=== PATIENT | female | born 1990 | race Caucasian/White ===

== ENCOUNTER 2017-03-06 23:08 | Inpatient (IN) | payer MEDICAID, OTHER ==
[~2017-03-06] VITALS: Ht 162.6 cm; Wt 116.9 kg
[~2017-03-06 23:08] MED LIST: DIFL150T PO; MACR100C PO; TIZA4 PO
[2017-03-06 23:09] VITALS: BP 181/86; PULSE 96; RESP 20; TEMP 98; O2SAT 100
[2017-03-07] VITALS (10 sets, daily range): BP systolic 108–152; BP diastolic 53–86; PULSE 16–93; RESP 16–18; TEMP 97.8–98.9; O2SAT 98–100
[2017-03-07 01:59] LABS: MEAN CORPUSCULAR HGB CONC 29.4 % (32.0-36.0)
[2017-03-07] MEDS ORDERED: ONDANSETRON HCL 4 MG/2 ML VIAL IV ONE (02:30)
[2017-03-07] MEDS ORDERED: MORPHINE SULFATE 4 MG/ML INJ IV PUSH ONE ×2 (02:30→04:45)
[2017-03-07] MEDS ORDERED: SODIUM CHLOR 0.9% 1000 ML INJ 1,000 ML IV ONE (02:30)
[2017-03-07 02:31] LABS: BASOPHIL % 0.5 % (0.0-2.0); EOSINOPHIL # 0.1 TH/MM3 (0-0.4); EOSINOPHIL % 1.4 % (0.0-4.0); LYMPH % 13.1 % (9.0-44.0); LYMPHOCYTE # 1.2 TH/MM3 (1.0-4.8); MEAN CELL VOLUME 56.8 FL (80.0-100.0); MEAN CORPUSCULAR HEMOGLOBIN 16.7 PG (27.0-34.0); MONO % 8.6 % (0.0-8.0); NEUT % 76.4 % (16.0-70.0); PLATELET COUNT 359 TH/MM3 (150-450); RED BLOOD COUNT 3.59 MIL/MM3 (4.00-5.30); RED CELL DISTRIBUTION WIDTH 20.9 % (11.6-17.2); WHITE BLOOD COUNT 9.2 TH/MM3 (4.0-11.0)
--- NOTE | 2017-03-07 02:45 | PD ---
HPI Chief Complaint: Abdominal Pain Time Seen by Provider: 01:29 Travel History International Travel<30 days: No Contact w/Intl Traveler<30days: No Traveled to known affect area: No History of Present Illness HPI The patient is 26 year old female who presents to the [facility] emergency department with a history of right lower quadrant pain that began at approximately 6 PM while she was working. She reports that last night she did start her menstrual cycle and initially thought it was related to this that she does have a history of dysmenorrhea, however the pain felt different. She reports that the pain is severe. She reports that it is constant although it waxes and wanes in its severity. She reports having nausea but no vomiting. She denies having any diarrhea. Her last bowel movement was earlier today. She denies having any blood in her stool or black or tarry stools. She reports that she does have a history of anemia related to her heavy menstrual cycles. The patient denies any recent fevers, cough, congestion, neck pain, chest pain, shortness of breath, urinary symptoms, vaginal discharge, or neurologic symptoms. [facility] Past Medical History Narrative Medical The patient's past medical history is significant for anemia related to her menstrual cycles, history of mild asthma. Hx Anticoagulant Therapy: No Anemia: Yes Asthma: Yes Cancer: No Cardiovascular Problems: No Chemotherapy: No Cerebrovascular Accident: No Diabetes: No Diminished Hearing: No GERD: Yes Psychiatric: No Respiratory: No Immunizations Current: Yes Seizures: No Thyroid Disease: No Ulcer: Yes (PEPTIC) Influenza Vaccination: Yes ?: Not : 4 Para: 3 : 1 Tubal Ligation: Yes Past Surgical History Narrative Surgical The patient's past surgical history is significant for 3 prior C-sections, bilateral tubal ligation. Section: Yes (3 C-SECTIONS 2007 AND 2011) Hysterectomy: No (TUBAL 2012) Oral Surgery: Yes Other Surgery: No Social History Alcohol Use: Yes (occ) Tobacco Use: No Substance Use: No Allergies-Medications (Allergen,Severity, Reaction): Coded Allergies: Lomotil (Verified Allergy, Severe, HIVES, 03/07/17) Reported Meds & Prescriptions Reported Meds & Active Scripts Active No Active Prescriptions or Reported Medications Review of Systems Except as stated in HPI: all other systems reviewed are Neg General / Constitutional: No: Fever Eyes: No: Visual changes HENT: No: Headaches Cardiovascular: No: Chest Pain or Discomfort Respiratory: No: Shortness of Breath Gastrointestinal: Positive: Nausea, Abdominal Pain, No: Vomiting, Diarrhea, Hematemesis, Hematochezia, Constipation, Changes in Bowel Habits, Indigestion, Loss of Appetite Genitourinary: No: Dysuria Musculoskeletal: No: Pain Skin: No Rash Neurologic: No: Weakness Psychiatric: No: Depression Endocrine: No: Polydipsia Hematologic/Lymphatic: No: Easy Bruising Physical Exam Narrative General: The patient is a well-developed well-nourished female, uncomfortable appearing on examination holding her right lower quadrant of the abdomen. Head and Neck exam: Head is normocephalic atraumatic. Eyes: EOMI, pupils are equal round and reactive to light. Nose: Midline septum with pink mucous membranes Mouth: Dentition unremarkable. Moist mucus membranes. Posterior oropharynx is not erythematous. No tonsillar hypertrophy. Uvula midline. Airway patent. Neck: No palpable lymphadenopathy. No nuchal rigidity. No thyromegaly. Cardiovascular: Regular rate and rhythm without murmurs, gallops, or rubs. No pulse deficit to the extremities. Lungs: Clear to auscultation bilaterally. No wheezes, rhonchi, or rales. Abdomen: Soft, with tenderness on palpation of the right lower quadrant of the abdomen, no other tenderness on palpation of the other 3 quadrants of the abdomen. No guarding, rebound, or rigidity. Negative [place] sign. She does have tenderness on palpation over McBurney's point. Normal bowel sounds are audible. Extremities: No clubbing, cyanosis, or edema. 2+ pulses in all 4 extremities. No calf tenderness on palpation. Back: No costovertebral angle tenderness to palpation. Neurologic Exam: Grossly nonfocal. Skin Exam: No rash noted. Intact skin that is warm and dry. Data Data Last Documented VS Vital Signs Date Time Temp Pulse Resp B/P Pulse Ox O2 Delivery O2 Flow Rate FiO2 03/07/17 03:50 78 16 135/63 98 Room Air 03/06/17 23:09 98.0 Orders Complete Blood Count With Diff (03/07/17 01:56) Comprehensive Metabolic Panel (03/07/17 01:56) C-Reactive Protein (Crp) (03/07/17 01:56) Lipase (03/07/17 01:56) Urinalysis - C+S If Indicated (03/07/17 01:56) Ct Abd/Pel W Iv Contrast(Rout) (03/07/17 01:56) Iv Access Insert/Monitor (03/07/17 01:56) Ecg Monitoring (03/07/17 01:56) Oximetry (03/07/17 01:56) Ed Urine Pregnancytest Poc (03/07/17 01:56) Sodium Chlor 0.9% 1000 Ml Inj (Ns 1000 M (03/07/17 02:30) Ondansetron Inj (Zofran Inj) (03/07/17 02:30) Morphine Inj (Morphine Inj) (03/07/17 02:30) Type And Screen (03/07/17 02:57) Red Blood Cells (Rbc) (03/07/17 02:57) Iohexol 350 Inj (Omnipaque 350 Inj) (03/07/17 03:06) Ketorolac Inj (Toradol Inj) (03/07/17 03:45) Admit Order (Ed Use Only) (03/07/17 04:09) Labs Laboratory Tests Test 03/07/17 03/07/17 02:20 03:25 White Blood Count 9.2 TH/MM3 Red Blood Count 3.59 MIL/MM3 Hemoglobin 6.0 GM/DL Hematocrit 20.4 % Mean Corpuscular Volume 56.8 FL Mean Corpuscular Hemoglobin 16.7 PG Mean Corpuscular Hemoglobin 29.4 % Concent Red Cell Distribution Width 20.9 % Platelet Count 359 TH/MM3 Mean Platelet Volume 8.8 FL Neutrophils (%) (Auto) 76.4 % Lymphocytes (%) (Auto) 13.1 % Monocytes (%) (Auto) 8.6 % Eosinophils (%) (Auto) 1.4 % Basophils (%) (Auto) 0.5 % Neutrophils # (Auto) 7.0 TH/MM3 Lymphocytes # (Auto) 1.2 TH/MM3 Monocytes # (Auto) 0.8 TH/MM3 Eosinophils # (Auto) 0.1 TH/MM3 Basophils # (Auto) 0.0 TH/MM3 CBC Comment AUTO DIFF Differential Comment AUTO DIFF CONFIRMED Ovalocytes 1+ Sodium Level 141 MEQ/L Potassium Level 3.4 MEQ/L Chloride Level 111 MEQ/L Carbon Dioxide Level 22.9 MEQ/L Anion Gap 7 MEQ/L Blood Urea Nitrogen 14 MG/DL Creatinine 0.79 MG/DL Estimat Glomerular Filtration 88 ML/MIN Rate Random Glucose 104 MG/DL Calcium Level 8.4 MG/DL Magnesium Level 2.3 MG/DL Iron Level 10 MCG/DL Total Iron Binding Capacity 487 MCG/DL Percent Iron Saturation 2.1 % Total Bilirubin 0.2 MG/DL Aspartate Amino Transf 16 U/L (AST/SGOT) Alanine Aminotransferase 19 U/L (ALT/SGPT) Alkaline Phosphatase 37 U/L C-Reactive Protein 0.77 MG/DL Total Protein 6.8 GM/DL Albumin 3.5 GM/DL Lipase 107 U/L Urine Color LIGHT-YELLOW Urine Turbidity CLEAR Urine pH 7.5 Urine Specific [place] 1.031 Urine Protein TRACE mg/dL Urine Glucose (UA) NEG mg/dL Urine Ketones NEG mg/dL Urine Occult Blood LARGE Urine Nitrite NEG Urine Bilirubin NEG Urine Urobilinogen LESS THAN 2.0 MG/DL Urine Leukocyte Esterase SMALL Urine RBC /hpf Urine WBC 5 /hpf Urine Squamous Epithelial 3 /hpf Cells Microscopic Urinalysis Comment CULT NOT INDICATED Blood Type A POSITIVE Antibody Screen NEGATIVE Crossmatch Leukocyte-Reduced Red Blood Cells Blood Bank Comment MDM Medical Decision Making Medical Screen Exam Complete: Yes Emergency Medical Condition: Yes Medical Record Reviewed: Yes Interpretation(s) Last Impressions Abdomen/Pelvis CT 03/07/17 0156 Signed Impressions: Service Date/Time: Tuesday, March 07, 2017 03:06 - CONCLUSION: 3 mm stone at the right UPJ causing hydronephrosis of the right kidney. Jim So MD Pelvis Ultrasound 03/07/17 0000 Signed Impressions: Service Date/Time: Tuesday, March 07, 2017 08:44 - CONCLUSION: 1. Isolated 1.7 x 1.5 x 2.2 cm small fibroid in the mid uterine body. Uterus is otherwise sonographically intact with a normal endometrial stripe. 2. Small, benign appearing 1 cm follicular type cysts in the left ovary. Ovaries are otherwise sonographically normal. 3. No free fluid. Patrick Stallworth MD Differential Diagnosis Ovarian cyst, versus appendicitis, versus dysmenorrhea, versus ectopic Narrative Course During the course of the patients emergency department visit, the patients history, examination, and differential diagnosis were reviewed with the patient. The patient had IV access obtained and blood work sent for analysis. The patient was placed on a cardiac care nurse with oximetry and blood pressure monitoring. The patient had a bedside test that was negative. The patient was initially provided normal saline 1 L IV fluid bolus, morphine 4 mg IV for pain, Zofran 4 mg IV for nausea. The patients laboratory studies were reviewed and remarkable for a white count of 9.2, hemoglobin 6, platelets 359 with 76.4 neutrophils, CMP is remarkable for a potassium at 3.4, chloride 111, GFR of 88, calcium 8.4, alkaline phosphatase 37, C-reactive protein 0.77, lipase 107, urinalysis shows innumerable rbc's otherwise unremarkable. I reviewed the patient's electronic medical record reveals that the patient has not been this anemic in the past. She denies any prior history of blood transfusion. She is agreeable with the plan to proceed with blood transfusion 2 units. Radiology studies were reviewed and remarkable for CT scan of the abdomen and pelvis that shows a 3 mm stone at the right UVJ causing hydronephrosis of the right kidney. The patients results were discussed with the patient, including the plan of care. I explained that further testing and/ or monitoring is indicated based on the patients history, examination, and/ or laboratory findings. Therefore, I recommended admission for additional evaluation. The patient expressed understanding and was agreeable with this plan. The patient was admitted to the hospital in stable condition and [facility] Physician Communication Physician Communication The patient's case was discussed with Dr. Shaikh who did agree to admit the patient for further evaluation and treatment at this time. Diagnosis Primary Impression: Menorrhagia Qualified Code: N92.0 - Menorrhagia with regular cycle Additional Impressions: Symptomatic anemia Ureteral calculi Admitting Information Admitting Physician Requests: Admit Scripts No Active Prescriptions or Reported Meds Azalia Gill MD Mar 07, 2017 02:45
[2017-03-07 02:47] LABS: ALT (GPT) 19 U/L (10-53); ANION GAP 7 MEQ/L (5-15); AST (GOT) 16 U/L (15-37); BICARBONATE 22.9 MEQ/L (21.0-32.0); BLOOD UREA NITROGEN 14 MG/DL (7-18); CHLORIDE 111 MEQ/L (98-107); GLOMERULAR FILTRATION RATE 88 ML/MIN (>89); POTASSIUM 3.4 MEQ/L (3.5-5.1); SODIUM (NA) 141 MEQ/L (136-145)
[2017-03-07 02:49] LABS: ALKALINE PHOSPHATASE 37 U/L (45-117); TOTAL BILIRUBIN ADULT 0.2 MG/DL (0.2-1.0)
[2017-03-07 02:52] LABS: HEMO FLAGS AUTO DIFF
[2017-03-07 02:53] LABS: HEMATOCRIT 20.4 % (35.0-46.0)
[2017-03-07] MEDS ORDERED: IOHEXOL 350 MG/ML 10 ML VIAL (for RAD DIAG) IV ONE (03:06)
[2017-03-07 03:17] LABS: OVALOCYTES 1+ (NORMAL); SCAN/DIFF AUTO DIFF CONFIRMED
--- NOTE | 2017-03-07 03:22 | RADRPT ---
EXAM DATE/TIME: 03/07/2017 03:06 [facility] COMPARISON: CT ABDOMEN & PELVIS W CONTRAST, September 05, 2008, 21:46. INDICATIONS : Right lower quadrant pain with nausea. IV CONTRAST: 97 cc Omnipaque 350 (iohexol) IV ORAL CONTRAST: No oral contrast ingested. RADIATION DOSE: 28.02 CTDIvol (mGy) MEDICAL HISTORY : Gastroesophageal reflux disease. Asthma. SURGICAL HISTORY : Tubal ligation. section. ENCOUNTER: Initial ACUITY: 1 day PAIN SCALE: 8/10 LOCATION: Right lower quadrant TECHNIQUE: Volumetric scanning of the abdomen and pelvis was performed. Using automated exposure control and ad justment of the mA and/or kV according to patient size, radiation dose was kept as low as reasonably achievable to obtain optimal diagnostic quality images. FINDINGS: LOWER LUNGS: The visualized lower lungs are clear. LIVER: Homogeneous density without lesion. There is no dilation of the biliary tree. No calcified gallston es. SPLEEN: Normal size without lesion. PANCREAS: Within normal limits. KIDNEYS: Normal in size and shape. There is hydronephrosis of the right collecting system. There is a 3 mm sto ne at the right UPJ causing obstruction. The left kidney is unremarkable. ADRENAL GLANDS: Within normal limits. VASCULAR: There is no aortic aneurysm. BOWEL/MESENTERY: The stomach, small bowel, and colon demonstrate no acute abnormality. There is no free intraperitone al air or fluid. The appendix is unremarkable. No inflammatory changes. ABDOMINAL WALL: Within normal limits. RETROPERITONEUM: There is no lymphadenopathy. BLADDER: No wall thickening or mass. No evidence of stones. REPRODUCTIVE: Within normal limits. INGUINAL: There is no lymphadenopathy or hernia. MUSCULOSKELETAL: Within normal limits for patient age. CONCLUSION: 3 mm stone at the right UPJ causing hydronephrosis of the right kidney. Jim So MD on March 07, 2017 at 3:18 Board Certified Radiologist. This report was verified electronically.
[2017-03-07] MEDS ORDERED: KETOROLAC TROMETHAMINE 30 MG/ML (IVP) VIAL IV PUSH ONE (03:45)
[2017-03-07 03:50] LABS: BLOOD, URINE LARGE (NEG); COMMENT (UR) CULT NOT INDICATED; CULTURE IF INDICATED CULT NOT INDICATED; GLUCOSE,URINE NEG (NEG); KETONE, URINE NEG (NEG); NITRITE,URINE NEG (NEG); PH, URINE 7.5 (5.0-8.5); SQUAMOUS EPITHELIAL CELL URINE 3 /hpf (0-5); URINE COLOR LIGHT-YELLOW (YELLW/STRAW)
[2017-03-07] MEDS ORDERED: MORPHINE SULFATE 4 MG/ML INJ IV PRN (04:15)
[2017-03-07] MEDS ORDERED: NALOXONE HCL 0.4 MG/ML AMP IV PRN (04:15)
[2017-03-07] MEDS ORDERED: SODIUM CHLORIDE 0.9% FLUSH 10 ML FLUSH IV FLUSH PRN (04:15)
[2017-03-07] MEDS ORDERED: RESP: ALBUTEROL 2.5 MG/IPRATROPIUM 0.5 MG NEB (PRN) NEB (04:15)
[2017-03-07] MEDS ORDERED: ACETAMINOPHEN 325 MG TAB PO PRN ×2 (04:15)
--- NOTE | 2017-03-07 04:19 | HHI.HP ---
[facility] Service [facility] Primary Care Physician No Primary Care Physician Admission Diagnosis symptomatic anemia, ureteral calculi Diagnoses: (1) Symptomatic anemia (2) DUB (dysfunctional uterine bleeding) (3) Kidney stone on right side (4) Hypokalemia Chief Complaint: Right lower quadrant pain Travel History International Travel<30 Days: No Contact w/Intl Traveler <30 Da: No Traveled to Known Affected Are: No History of Present Illness 26-year-old female with a history of DUB presented to the ED for evaluation of 1 day history of right lower quadrant pain, rated 8/10 in intensity localized without any radiation. Patient also reported beginning of her menses yesterday and states during the first 2 days of her periods she goes over 1 sanitary pad every 30 minutes and is currently experiencing significant weakness and lightheadedness .However she states the pain on her right lower quadrant is totally different than her usual pain associated with her menstrual cycle. CT abdomen/pelvics reveal treatment right UPJ stone. Abnormal lab include hemoglobin of 6.0 and potassium of 3.4. Patient denies any GI bleed has no respiratory complaints Review of Systems Other 12 systems reviewed and are negative except for the one mentioned in history of present illness Past Family Social History Past Medical History Anemia: Yes Asthma: Yes GERD: Yes Past Surgical History 3 C-SECTIONS 2007 AND 2011 TUBAL 2012 Reported Medications No Active Prescriptions or Reported Medications Allergies: Coded Allergies: Lomotil (Verified Allergy, Severe, HIVES, 03/07/17) Social History Alcohol Use: Yes (occ) Tobacco Use: No Substance Use: No Physical Exam Vital Signs Vital Signs Date Time Temp Pulse Resp B/P Pulse Ox O2 Delivery O2 Flow Rate FiO2 03/07/17 03:50 78 16 135/63 98 Room Air 03/06/17 23:09 98.0 96 20 181/86 100 Physical Exam GENERAL: This is a well-nourished, well-developed patient, in no apparent distress. SKIN: No rashes, ecchymoses or lesions. Cool and dry. HEAD: Atraumatic. Normocephalic. No temporal or scalp tenderness. EYES: Pupils equal round and reactive. Extraocular motions intact. No scleral icterus. No injection or drainage. ENT: Nose without bleeding, purulent drainage or septal hematoma. Throat without erythema, tonsillar hypertrophy or exudate. Uvula midline. Airway patent. NECK: Trachea midline. No JVD or lymphadenopathy. Supple, nontender, no meningeal signs. CARDIOVASCULAR: Regular rate and rhythm without murmurs, gallops, or rubs. RESPIRATORY: Clear to auscultation. Breath sounds equal bilaterally. No wheezes , rales, or rhonchi. GASTROINTESTINAL: Abdomen soft, non-tender, nondistended. No hepato-splenomegaly , or palpable masses. No guarding. MUSCULOSKELETAL: Extremities without clubbing, cyanosis, or edema. No joint tenderness, effusion, or edema noted. No calf tenderness. Negative Hom[place] sign bilaterally. NEUROLOGICAL: Awake and alert. Cranial nerves II through XII intact. Motor and sensory grossly within normal limits. Five out of 5 muscle strength in all muscle groups. Normal speech. Laboratory Laboratory Tests Test 03/07/17 03/07/17 02:20 03:25 White Blood Count 9.2 Red Blood Count 3.59 Hemoglobin 6.0 Hematocrit 20.4 Mean Corpuscular Volume 56.8 Mean Corpuscular Hemoglobin 16.7 Mean Corpuscular Hemoglobin 29.4 Concent Red Cell Distribution Width 20.9 Platelet Count 359 Mean Platelet Volume 8.8 Neutrophils (%) (Auto) 76.4 Lymphocytes (%) (Auto) 13.1 Monocytes (%) (Auto) 8.6 Eosinophils (%) (Auto) 1.4 Basophils (%) (Auto) 0.5 Neutrophils # (Auto) 7.0 Lymphocytes # (Auto) 1.2 Monocytes # (Auto) 0.8 Eosinophils # (Auto) 0.1 Basophils # (Auto) 0.0 CBC Comment AUTO DIFF Differential Comment AUTO DIFF CONFIRMED Ovalocytes 1+ Sodium Level 141 Potassium Level 3.4 Chloride Level 111 Carbon Dioxide Level 22.9 Anion Gap 7 Blood Urea Nitrogen 14 Creatinine 0.79 Estimat Glomerular Filtration 88 Rate Random Glucose 104 Calcium Level 8.4 Total Bilirubin 0.2 Aspartate Amino Transf 16 (AST/SGOT) Alanine Aminotransferase 19 (ALT/SGPT) Alkaline Phosphatase 37 C-Reactive Protein 0.77 Total Protein 6.8 Albumin 3.5 Lipase 107 Urine Color LIGHT-YELLOW Urine Turbidity CLEAR Urine pH 7.5 Urine Specific [place] 1.031 Urine Protein TRACE Urine Glucose (UA) NEG Urine Ketones NEG Urine Occult Blood LARGE Urine Nitrite NEG Urine Bilirubin NEG Urine Urobilinogen LESS THAN 2.0 Urine Leukocyte Esterase SMALL Urine RBC Urine WBC 5 Urine Squamous Epithelial 3 Cells Microscopic Urinalysis Comment CULT NOT INDICATED Blood Type A POSITIVE Result Diagram: 03/07/1721903/07/17219 Imaging Last Impressions Abdomen/Pelvis CT 03/07/17 0156 Signed Impressions: Service Date/Time: Tuesday, March 07, 2017 03:06 - CONCLUSION: 3 mm stone at the right UPJ causing hydronephrosis of the right kidney. Jim So MD Assessment and Plan Problem List: (1) Symptomatic anemia ICD Code: D64.9 Status: Acute (2) DUB (dysfunctional uterine bleeding) ICD Code: N93.8 Status: Acute (3) Hypokalemia ICD Code: E87.6 Status: Acute (4) Kidney stone on right side ICD Code: N20.0 Status: Acute (5) Obese ICD Code: E66.9 Status: Acute Assessment and Plan 26-year-old female with Symptomatic anemia Dysfunction uterine bleeding H&H of 6.0/20.4 -Transfuse 2 units of packed red blood cell and monitor H&H -Check iron profile -Check pelvic ultrasound to rule out fibroids -Outpatient follow-up with [facility] secondary to DUB for evaluation for possible D&C Hypokalemia -Replace Meredith to monitor Nephrolithiasis -CT abdomen noted and reviewed by me with finding of 3 mm stone at the right UPJ causing hydronephrosis of the right kidney -Gentle IV fluid hydration -Conservative treatment with Pain medication/analgesic accordingly, straining of urine -Flomax when necessary Obesity: Weight loss management advised DVT prophylaxis: Bilateral SCDs Code Status Full code Discussed Condition With Patient, ED physician Physician Certification 2 Midnight Certification Type: Admission for Inpatient Services Order for Inpatient Services The services are ordered in accordance with Medicare regulations or non- Medicare payer requirements, as applicable. In the case of services not specified as inpatient-only, they are appropriately provided as inpatient services in accordance with the 2-midnight benchmark. Estimated LOS (days): 2 days is the estimated time the patient will need to remain in the hospital, assuming treatment plan goals are met and no additional complications. Post-Hospital Plan: Not yet determined Chalo Shaikh MD Mar 07, 2017 04:19
[2017-03-07] MEDS ORDERED: POTASSIUM CHLORIDE 20 MEQ CONTROLLED RELEASE TAB PO ONE (04:30)
[2017-03-07 04:42] LABS: TRANSFERRIN IRON PROFILE 348 MG/DL (200-360)
--- NOTE | 2017-03-07 08:00 | HHI.PR ---
Subjective Remarks f/u anemia, R LQ pain pain is still there, worsening, comes and goes, 8-10, sharp with nausea, no vomiting, no fever. Also feels weak and with BYRD and would like to avoid transfusion Objective Vitals Vital Signs Date Time Temp Pulse Resp B/P Pulse Ox O2 Delivery O2 Flow Rate FiO2 03/07/17 05:00 16 03/07/17 03:50 78 16 135/63 98 Room Air 03/06/17 23:09 98.0 96 20 181/86 100 I/O 03/06/17 03/06/17 03/06/17 03/07/17 03/07/17 03/07/17 07:00 15:00 23:00 07:00 15:00 23:00 Intake Total 120 ml Balance 120 ml Intake Oral 120 ml # Voids 2 # Bowel Movements 0 Result Diagram: 03/07/1721903/07/17219 Objective Remarks Not in distress, well-nourished, looks stated age PERRL, pink conjunctiva without injection, anicteric Nose without bleeding, airway patent, oropharynx clear Supple neck, no masses or thyromegaly, trachea midline Normal rate and regular rhythm, soft 1/6 murmur Clear to auscultation and symmetric bilaterally, normal respiratory effort. Normal bowel sounds, soft, mild tenderness in the right lower quadrant, no CVA tenderness, nondistended, no guarding. Extremities without clubbing, cyanosis, or edema. No rash of generalized distribution. Skin is warm and dry. AAO x3, no cranial nerve deficits, moves all 4 extremities, no focal neurologic deficits Normal mood, appropriate affect A/P Problem List: (1) Symptomatic anemia ICD Code: D64.9 Status: Acute (2) DUB (dysfunctional uterine bleeding) ICD Code: N93.8 Status: Acute (3) Hypokalemia ICD Code: E87.6 Status: Acute (4) Kidney stone on right side ICD Code: N20.0 Status: Acute (5) Obese ICD Code: E66.9 Status: Acute Assessment and Plan This is a 26-year-old female with history of dysfunctional uterine bleeding presenting with anemia and right lower quadrant pain Symptomatic iron deficiency anemia secondary to Dysfunction uterine bleeding -H&H of 6.0/20.4, patient would like to be conservative with transfusion. Recheck hemoglobin, if still low, transfuse 2 units of packed red blood cells, iron profile also shows iron deficiency anemia. Start iron dextran. Follow-up ultrasound of the pelvis to rule out fibroids, outpatient follow-up with gynecology. Ureterolithiasis - abdominal CT scan showed right UPJ stone, 3 mm with hydronephrosis, kidney function is normal, will likely spontaneously pass out. Start Flomax, normal saline at 125 cc per hour, consult urology. Continue pain control, will strain urine. Hypokalemia- replace, check magnesium. Obesity: Weight loss management advised DVT prophylaxis: Bilateral SCDs, pharmacological prophylaxis contraindicated because of the knee. Noe Lopez MD Mar 07, 2017 08:00 Code Status Full code Neo Lopez MD Mar 07, 2017 08:00
[2017-03-07] MEDS: KETOROLAC TROMETHAMINE 10 MG TAB PO PRN ×2 (08:15→17:41)
[2017-03-07] MEDS: ONDANSETRON HCL 4 MG/2 ML VIAL IVP PRN ×2 (08:21→22:28)
[2017-03-07] MEDS: SODIUM CHLORIDE 0.9% FLUSH 10 ML FLUSH IV FLUSH SCH ×2 (09:00→20:00)
[2017-03-07 09:02] LABS: REVIEW FLAG FINAL
[2017-03-07 09:05] LABS: HEMATOCRIT 20.2 % (35.0-46.0)
--- NOTE | 2017-03-07 09:51 | RADRPT ---
EXAM DATE/TIME: 03/07/2017 08:44 [facility] COMPARISON: No previous studies available for comparison. INDICATIONS : Heavy menstrual cycle. MEDICAL HISTORY : Syncope. Migranes. Dizziness. Numbness. Heart murmur. Asthma. Dyspnea. Kidney stones. GOUT. Depressio n. Anemia. Hay fever. SURGICAL HISTORY : section. Tubal ligation. ENCOUNTER: Initial ACUITY: 1 day PAIN SCORE: 1/10 LOCATION: Bilateral pelvis MEASUREMENTS: UTERUS: 14.3 x 4.6 x 6.4 cm ENDOMETRIAL STRIPE: 3 mm RIGHT OVARY: 2.8 x 1.6 x 1.5 cm LEFT OVARY: 3.1 x 2.0 x 2.8 cm FINDINGS: UTERUS: Focal, 1.7 x 1.5 x 2.2 cm hypoechoic area in the mid uterus is characteristic of a small, isolated fi broid. Otherwise, homogeneous echotexture. RIGHT OVARY: Ovary contains no mass or significant cystic lesion. LEFT OVARY: Small, 1 cm follicular type cyst. Otherwise negative. MISCELLANEOUS: No free fluid. CONCLUSION: 1. Isolated 1.7 x 1.5 x 2.2 cm small fibroid in the mid uterine body. Uterus is otherwise sonographic ally intact with a normal endometrial stripe. 2. Small, benign appearing 1 cm follicular type cysts in the left ovary. Ovaries are otherwise sonogr aphically normal. 3. No free fluid. Patrick Stallworth MD on March 07, 2017 at 9:47 Board Certified Radiologist. This report was verified electronically.
[2017-03-07] MEDS: TAMSULOSIN HCL 0.4 MG CAP PO SCH (10:14)
[2017-03-07] MEDS: SODIUM CHLOR 0.9% 1000 ML INJ 1,000 ML IV SCH ×3 (10:15→22:28)
[2017-03-07] MEDS: MORPHINE SULFATE 4 MG/ML INJ IV PRN ×2 (13:22→22:28)
--- NOTE | 2017-03-07 18:41 | PD.CONS ---
HPI Service Urology Consult Requested By Reason for Consult Nephrolithiasis Primary Care Physician No Primary Care Physician Diagnosis: (1) Symptomatic anemia ICD Code: D64.9 (2) DUB (dysfunctional uterine bleeding) ICD Code: N93.8 (3) Hypokalemia ICD Code: E87.6 (4) Kidney stone on right side ICD Code: N20.0 (5) Obese ICD Code: E66.9 History of Present Illness 26yo female admitted for significant right flank pain as well as anemia seen in consultation for right nephrolithiasis. Patient reports she began to have pain yesterday while at work. Initially thought it due to her menstrual cycle, however the pain persisted and worsened. She describes the pain to be located in the right flank, radiating to the RUQ, that is sharp and severer, 10/10, intermittent in nature. She had nausea associated with the pain, no fevers. She has never had a stone episode before. She reported to the ED last night with CT scan identifying a right UPJ stone approx 3mm in size with mild hydronephrosis. Currently comfortable with pain medication. Review of Systems ROS Limitations: Clinical Condition Constitutional: DENIES: Fever Endocrine: COMPLAINS OF: Abnorml menstrual pattern Eyes: DENIES: Blurred vision Ears, nose, mouth, throat: DENIES: Hearing loss Respiratory: DENIES: Apneas, Cough Cardiovascular: DENIES: Chest pain Gastrointestinal: COMPLAINS OF: Abdominal pain Genitourinary: DENIES: Hematuria, Dysuria Musculoskeletal: DENIES: Joint pain Integumentary: DENIES: Rash Hematologic/lymphatic: DENIES: Bruising Immunologic/allergic: DENIES: Eczema Neurologic: DENIES: Abnormal gait, Headache Psychiatric: DENIES: Anxiety Except as stated in HPI: all other systems reviewed are Neg Past Family Social History Past Medical History Asthma GERD Past Surgical History 3 C-SECTIONS 2007 AND 2012 TUBAL 2013 Reported Medications Reported Meds & Active Scripts Active No Active Prescriptions or Reported Medications Allergies: Coded Allergies: Lomotil (Verified Allergy, Severe, HIVES, 03/07/17) Active Ordered Medications Current Medications Medications (Trade) Dose Ordered Sig/Moody Route Start Time Stop Time Status Last Admin (NS Flush) 2 ml UNSCH PRN IV FLUSH 03/07/17 04:15 (NS Flush) 2 ml BID IV FLUSH 03/07/17 09:00 (Tylenol) 650 mg Q4H PRN PO 03/07/17 04:15 (Zofran Inj) 4 mg Q6H PRN IVP 03/07/17 04:15 03/07/17 08:21 (Tylenol) 650 mg Q6H PRN PO 03/07/17 04:15 (Narcan Inj) 0.4 mg UNSCH PRN IV 03/07/17 04:15 Ketorolac Tromethamine 10 mg 10 mg Q6H PRN PO 03/07/17 04:45 03/12/17 04:44 03/07/17 17:41 (NS 1000 ml Inj) 1,000 ml @ 125 mls/hr Q8H IV 03/07/17 08:30 03/07/17 10:15 (Flomax) 0.4 mg DAILY PO 03/07/17 09:00 03/07/17 10:14 (Morphine Inj) 4 mg Q3H PRN IV 03/07/17 13:15 03/07/17 13:22 Family History Grandmother with "kidney problems" Social History ETOH No Tobacco Physical Exam Vital Signs Date Time Temp Pulse Resp B/P Pulse Ox O2 Delivery O2 Flow Rate FiO2 03/07/17 18:20 98.1 89 16 131/59 100 03/07/17 17:25 98.1 16 16 131/59 100 03/07/17 16:00 98.9 90 18 118/53 100 03/07/17 13:40 98.5 87 16 123/64 99 03/07/17 13:25 98.0 86 18 143/86 100 03/07/17 12:00 98.0 86 18 143/86 100 03/07/17 07:58 98.0 93 18 152/59 98 03/07/17 05:00 16 03/07/17 03:50 78 16 135/63 98 Room Air 03/06/17 23:09 98.0 96 20 181/86 100 Physical Exam GENERAL: This is a well-nourished, well-developed patient, in no apparent distress. SKIN: No rashes, ecchymoses or lesions. Cool and dry. HEAD: Atraumatic. Normocephalic. EYES: Extraocular motions intact. No scleral icterus. No injection or drainage. ENT: Nose without bleeding, purulent drainage. Airway patent. NECK: Trachea midline. No JVD or lymphadenopathy. CARDIOVASCULAR: Normal pulses, extremities well perfused RESPIRATORY: Nonlabored, equal chest rise GASTROINTESTINAL: Abdomen soft, non-tender, nondistended. GENITOURINARY: Mild right CVA tenderness MUSCULOSKELETAL: Extremities without clubbing, cyanosis, or edema. NEUROLOGICAL: Awake and alert. Motor and sensory grossly within normal limits. Normal speech. Lab results reviewed: Yes Laboratory Tests Test 03/07/17 03/07/17 03/07/17 03/07/17 02:20 03:25 04:21 08:41 White Blood Count 9.2 Red Blood Count 3.59 Hemoglobin 6.0 6.0 Hematocrit 20.4 20.2 Mean Corpuscular Volume 56.8 Mean Corpuscular Hemoglobin 16.7 Mean Corpuscular Hemoglobin 29.4 Concent Red Cell Distribution Width 20.9 Platelet Count 359 Mean Platelet Volume 8.8 Neutrophils (%) (Auto) 76.4 Lymphocytes (%) (Auto) 13.1 Monocytes (%) (Auto) 8.6 Eosinophils (%) (Auto) 1.4 Basophils (%) (Auto) 0.5 Neutrophils # (Auto) 7.0 Lymphocytes # (Auto) 1.2 Monocytes # (Auto) 0.8 Eosinophils # (Auto) 0.1 Basophils # (Auto) 0.0 CBC Comment AUTO DIFF Differential Comment AUTO DIFF CONFIRMED Ovalocytes 1+ Sodium Level 141 Potassium Level 3.4 Chloride Level 111 Carbon Dioxide Level 22.9 Anion Gap 7 Blood Urea Nitrogen 14 Creatinine 0.79 Estimat Glomerular Filtration 88 Rate Random Glucose 104 Calcium Level 8.4 Magnesium Level 2.3 Iron Level 10 Total Iron Binding Capacity 487 Percent Iron Saturation 2.1 Total Bilirubin 0.2 Aspartate Amino Transf 16 (AST/SGOT) Alanine Aminotransferase 19 (ALT/SGPT) Alkaline Phosphatase 37 C-Reactive Protein 0.77 Total Protein 6.8 Albumin 3.5 Lipase 107 Urine Color LIGHT-YELLOW Urine Turbidity CLEAR Urine pH 7.5 Urine Specific [place] 1.031 Urine Protein TRACE Urine Glucose (UA) NEG Urine Ketones NEG Urine Occult Blood LARGE Urine Nitrite NEG Urine Bilirubin NEG Urine Urobilinogen LESS THAN 2.0 Urine Leukocyte Esterase SMALL Urine RBC Urine WBC 5 Urine Squamous Epithelial 3 Cells Microscopic Urinalysis Comment CULT NOT INDICATED Blood Type A POSITIVE A POSITIVE Antibody Screen NEGATIVE Crossmatch Leukocyte-Reduced Red Blood Cells Blood Bank Comment Result Diagram: 03/07/17 0841 03/07/17 0220 Personally reviewed images: Yes Imaging Last Impressions Abdomen/Pelvis CT 03/07/17 0156 Signed Impressions: Service Date/Time: Tuesday, March 07, 2017 03:06 - CONCLUSION: 3 mm stone at the right UPJ causing hydronephrosis of the right kidney. Jim So MD Pelvis Ultrasound 03/07/17 0000 Signed Impressions: Service Date/Time: Tuesday, March 07, 2017 08:44 - CONCLUSION: 1. Isolated 1.7 x 1.5 x 2.2 cm small fibroid in the mid uterine body. Uterus is otherwise sonographically intact with a normal endometrial stripe. 2. Small, benign appearing 1 cm follicular type cysts in the left ovary. Ovaries are otherwise sonographically normal. 3. No free fluid. Patrick Stallworth MD Assessment and Plan Problem List: (1) Kidney stone on right side ICD Code: N20.0 Status: Acute Assessment and Plan 26yo female with right nephrolithiasis -CT scan reviewed with mild right hydronephrosis and small proximal ureteral stone noted in the right UPJ, approx 3mm in size -Patient has a good chance to pass this stone without surgical intervention -Recommend continued medical expulsive therapy with flomax and pain control -Patient may follow-up with [facility] in 2 weeks for further management of her stone burden after discharge -If her pain acutely worsens or develops significant fevers, she may require a stent -Please call with questions Aakash Beaulieu MD Mar 07, 2017 18:41
[2017-03-08 00:40] VITALS: BP 108/58; PULSE 91; RESP 17; TEMP 98.6; O2SAT 94
[2017-03-08] MEDS: KETOROLAC TROMETHAMINE 10 MG TAB PO PRN ×3 (01:38→22:01)
[2017-03-08] MEDS: MORPHINE SULFATE 4 MG/ML INJ IV PRN ×4 (04:01→19:43)
[2017-03-08 04:15] VITALS: BP 106/49; PULSE 79; RESP 16; TEMP 97; O2SAT 96
[2017-03-08 07:01] LABS: BASOPHIL % 0.5 % (0.0-2.0); EOSINOPHIL # 0.2 TH/MM3 (0-0.4); EOSINOPHIL % 2.5 % (0.0-4.0); HEMATOCRIT 24.4 % (35.0-46.0); LYMPH % 24.6 % (9.0-44.0); LYMPHOCYTE # 2.3 TH/MM3 (1.0-4.8); MEAN CORPUSCULAR HEMOGLOBIN 18.6 PG (27.0-34.0); MONO % 9.8 % (0.0-8.0); NEUT % 62.6 % (16.0-70.0); PLATELET COUNT 302 TH/MM3 (150-450); RED BLOOD COUNT 3.94 MIL/MM3 (4.00-5.30); RED CELL DISTRIBUTION WIDTH 26.4 % (11.6-17.2); WHITE BLOOD COUNT 9.5 TH/MM3 (4.0-11.0)
[2017-03-08 07:07] LABS: HEMO FLAGS AUTO DIFF
[2017-03-08] MEDS: SODIUM CHLOR 0.9% 1000 ML INJ 1,000 ML IV SCH (07:37)
[2017-03-08] MEDS: SODIUM CHLORIDE 0.9% FLUSH 10 ML FLUSH IV FLUSH SCH ×2 (07:38→19:42)
[2017-03-08 07:43] LABS: ALKALINE PHOSPHATASE 35 U/L (45-117); ALT (GPT) 17 U/L (10-53); ANION GAP 6 MEQ/L (5-15); AST (GOT) 14 U/L (15-37); BICARBONATE 25.6 MEQ/L (21.0-32.0); BLOOD UREA NITROGEN 16 MG/DL (7-18); CHLORIDE 109 MEQ/L (98-107); GLOMERULAR FILTRATION RATE 95 ML/MIN (>89); POTASSIUM 3.8 MEQ/L (3.5-5.1); SODIUM (NA) 141 MEQ/L (136-145); TOTAL BILIRUBIN ADULT 0.5 MG/DL (0.2-1.0)
[2017-03-08 08:03] LABS: KERATOCYTES OCC (NORMAL); PLATELET ESTIMATE SMEAR NORMAL (NORMAL); PLATELET MORPHOLOGY NORMAL (NORMAL); SCAN/DIFF AUTO DIFF CONFIRMED
[2017-03-08 08:04] VITALS: BP 111/57; PULSE 72; RESP 16; TEMP 97.3; O2SAT 100
[2017-03-08] MEDS: TAMSULOSIN HCL 0.4 MG CAP PO SCH (08:30)
[2017-03-08] MEDS: ONDANSETRON HCL 4 MG/2 ML VIAL IVP PRN (08:31)
--- NOTE | 2017-03-08 09:51 | HHI.PR ---
Subjective Remarks still fees weak voiding spontaneously right low back pain- " travelling down" better Objective Vitals Vital Signs Date Time Temp Pulse Resp B/P Pulse Ox O2 Delivery O2 Flow Rate FiO2 03/08/17 08:04 97.3 72 16 111/57 100 03/08/17 04:15 97.0 79 16 106/49 96 03/08/17 00:40 98.6 91 17 108/58 94 03/07/17 21:58 98.3 82 18 108/69 100 03/07/17 18:35 97.8 89 16 120/62 100 03/07/17 18:20 98.1 89 16 131/59 100 03/07/17 17:25 98.1 16 16 131/59 100 03/07/17 16:00 98.9 90 18 118/53 100 03/07/17 13:40 98.5 87 16 123/64 99 03/07/17 13:25 98.0 86 18 143/86 100 03/07/17 12:00 98.0 86 18 143/86 100 I/O 03/07/17 03/07/17 03/07/17 03/08/17 03/08/17 03/08/17 07:00 15:00 23:00 07:00 15:00 23:00 Intake Total 120 ml 1200 ml 720 ml 240 ml Balance 120 ml 1200 ml 720 ml 240 ml Intake Oral 120 ml 1200 ml 720 ml 240 ml # Voids 2 3 2 2 # Bowel Movements 0 0 0 1 Result Diagram: 03/08/17 0600 03/08/17 0600 Imaging Last Impressions Abdomen/Pelvis CT 03/07/17 0156 Signed Impressions: Service Date/Time: Tuesday, March 07, 2017 03:06 - CONCLUSION: 3 mm stone at the right UPJ causing hydronephrosis of the right kidney. Jim So MD Pelvis Ultrasound 03/07/17 0000 Signed Impressions: Service Date/Time: Tuesday, March 07, 2017 08:44 - CONCLUSION: 1. Isolated 1.7 x 1.5 x 2.2 cm small fibroid in the mid uterine body. Uterus is otherwise sonographically intact with a normal endometrial stripe. 2. Small, benign appearing 1 cm follicular type cysts in the left ovary. Ovaries are otherwise sonographically normal. 3. No free fluid. Patrick Stallworth MD Objective Remarks awake and alert oriented c 3 anicteric lungs clear regular rhythm abdomen-soft good bowel sounds extremities no edema A/P Problem List: (1) Symptomatic anemia ICD Code: D64.9 Status: Acute (2) DUB (dysfunctional uterine bleeding) ICD Code: N93.8 Status: Acute (3) Hypokalemia ICD Code: E87.6 Status: Acute (4) Kidney stone on right side ICD Code: N20.0 Status: Acute (5) Obese ICD Code: E66.9 Status: Acute Assessment and Plan This is a 26-year-old female with history of dysfunctional uterine bleeding presenting with anemia Symptomatic iron deficiency anemia secondary to Dysfunction uterine bleeding =severe Iron deficiency anemia 6.0/20. s/p 2 units RBC- still weak from menorrhagia - give another 1 unit RBC give IV iron 200 mg IV x 1 start po Iron bid in am - gyne consult for evaluation- ? surgery Ureterolithiasis - abdominal CT scan showed right UPJ stone, 3 mm with hydronephrosis, kidney function is normal, will likely spontaneously pass out. on Flomax,- seen by Urology- OP ff up Hypokalemia- replace, check magnesium. Obesity: Weight loss management advised DVT prophylaxis: encourage increase ambulation CM- consult needs OP ff up set up- no insurance= patient assistance Jayshree Dumont MD Mar 08, 2017 09:51
[2017-03-08] MEDS ORDERED: IRON SUCROSE INJ 200 MG in SODIUM CHLORIDE 0.9% INJ 100 ML IV ONE (11:00)
[2017-03-08 12:15] VITALS: BP 152/74; PULSE 84; RESP 16; TEMP 95.8; O2SAT 99
[2017-03-08 14:10] VITALS: BP 138/70; PULSE 80; RESP 16; TEMP 96.9; O2SAT 98
--- NOTE | 2017-03-08 17:14 | PD.CONS ---
HPI Chief Complaint Heavy menstrual cycles with anemia Date Seen: Mar 08, 2017 Travel History International Travel<30 Days: No Contact w/Intl Traveler<30Days: No Known Affected Area: No History of Present Illness HPI This patient is 26-year-old white female A1 previous 3 who presents to the hospital with symptomatic anemia resulting from heavy periods, her periods last about a week or so for the first 2 days are extremely heavy with large clots she is using a tampon every 30 minutes, she states that she can 't live like that it disrupts her ability to function and work and just live she had her last several years ago and had a tubal ligation with that one Dr. Shepherd did that surgery and she has tried control pills which she could not tolerate for this bleeding problem she had 2 IUD is attempted one was a Mirena the other was a copper IUD both either fell out or didn't work caused her bleeding to be too heavy, and she is seen another CUSTODIAL OFFICER doctor in the community is recommended she have a surgical ablation of the endometrium and this was she wants to have at this stage Para: 3 : 4 Miscarriage: 1 History Past Medical History Narrative Medical Anemia secondary to uterine blood loss She is currently in the hospital also for renal stones seen on CT scan causing right-sided pain Obstetric History Obstetric History 3 C-sections 1 loss Past Surgical History Narrative Surgical 3 C-sections Social History Alcohol Use: Yes Tobacco Use: No Substance Abuse: No Allergies-Medications (Allergen,Severity, Reaction): Coded Allergies: Lomotil (Verified Allergy, Severe, HIVES, 03/07/17) Home Meds Discontinued Reported Medications Tizanidine 4 mg (Zanaflex 4 mg)4 Mg Tab1 Tab PO HS PRN (RESTLESSNESS) 06/17/15 Discontinued Scripts Nitrofurantoin Monohyd Macro (Macrobid)100 Mg [id number] Mg PO BID #10 CAP Prov:Masoud Mccord MD 06/17/15 Fluconazole 150 mg (Diflucan 150 mg)150 Mg [id number] Mg PO TODAY #1 TAB Prov:Masoud Mccord MD 06/17/15 Review of Systems General / Constitutional: No: Fever, Weight Gain, Chills, Other Eyes: No: Diploplia, Blurred Vision, Visual changes, Pain, Photophobia HENT: No: Headaches, Vertigo, Lightheadedness Cardiovascular: No: Irregular Rhythm, Chest Pain or Discomfort, Palpitations, Tachycardia, Syncope, Varicosities, Edema, Cyanosis Respiratory: No: Cough, Short of Breath, Other Gastrointestinal: No: Nausea, Vomiting, Diarrhea Genitourinary: Menorrhagia, No: Decreased Urinary Output, Oliguria Musculoskeletal: No: Limited ROM, Weakness, Cramping, Edema, Pain Skin: No Rash, No Itching, No Dryness, No Lumps, No Change in Pigmentation, No Change in Nails, No Alopecia, No Lesions Neurologic: No: Weakness, Dizziness, Syncope, Focal Abnormalities, Coordination Problem, Headache, Slurred Speech, Seizures Psychiatric: No: Depression, Suicidal Ideations, Homicidal Ideation Endocrine: No: Heat Intolerance, Cold Intolerance, Polydipsia, Polyuria, Other Physical Exam Vital Signs Date Time Temp Pulse Resp B/P Pulse Ox O2 Delivery O2 Flow Rate FiO2 03/08/17 14:10 96.9 80 16 138/70 98 03/08/17 12:15 95.8 84 16 152/74 99 03/08/17 08:04 97.3 72 16 111/57 100 03/08/17 04:15 97.0 79 16 106/49 96 03/08/17 00:40 98.6 91 17 108/58 94 03/07/17 21:58 98.3 82 18 108/69 100 03/07/17 18:35 97.8 89 16 120/62 100 03/07/17 18:20 98.1 89 16 131/59 100 03/07/17 17:25 98.1 16 16 131/59 100 Narrative GENERAL: Well-nourished, well-developed patient. SKIN: Warm and dry. HEAD: Normocephalic and atraumatic. EYES: No scleral icterus. No injection or drainage. ENT: No nasal drainage noted. Mucous membranes pink. Airway patent. NECK: Supple, trachea midline. No JVD. CARDIOVASCULAR: Regular rate and rhythm without murmurs, gallops, or rubs. RESPIRATORY: Breath sounds equal bilaterally. No accessory muscle use. BREASTS: Bilateral exam showed no masses , no retractions, no nipple discharge. ABDOMEN/GI: Abdomen soft obese, non-tender, bowel sounds present, no rebound, no guarding Cervix: [Closed appears normal-] there is very little blood in the vagina , no active bleeding Dilatation: [-0] EXTREMITIES: No cyanosis or edema. BACK: Nontender without obvious deformity. No CVA tenderness. NEUROLOGICAL: Awake and alert. Motor and sensory grossly within normal limits. Five out of 5 muscle strength in all muscle groups. Normal speech. Data Data Orders Physician Name Changes (03/08/17 ) Iron Sucrose Inj (Venofer Inj) (03/08/17 11:00) Consult Gynecology (03/08/17 ) Case Management Consult (03/08/17 ) Morphine Inj (Morphine Inj) (03/08/17 12:00) (Hub Use Only)Inp Phy Cons/Ref (03/08/17 ) Labs Laboratory Tests Test 03/08/17 06:00 White Blood Count 9.5 Red Blood Count 3.94 Hemoglobin 7.3 Hematocrit 24.4 Mean Corpuscular Volume 62.0 Mean Corpuscular Hemoglobin 18.6 Mean Corpuscular Hemoglobin 30.0 Concent Red Cell Distribution Width 26.4 Platelet Count 302 Mean Platelet Volume 8.9 Neutrophils (%) (Auto) 62.6 Lymphocytes (%) (Auto) 24.6 Monocytes (%) (Auto) 9.8 Eosinophils (%) (Auto) 2.5 Basophils (%) (Auto) 0.5 Neutrophils # (Auto) 6.0 Lymphocytes # (Auto) 2.3 Monocytes # (Auto) 0.9 Eosinophils # (Auto) 0.2 Basophils # (Auto) 0.0 CBC Comment AUTO DIFF Differential Comment AUTO DIFF CONFIRMED Platelet Estimate NORMAL Platelet Morphology Comment NORMAL Keratocytes OCC Sodium Level 141 Potassium Level 3.8 Chloride Level 109 Carbon Dioxide Level 25.6 Anion Gap 6 Blood Urea Nitrogen 16 Creatinine 0.74 Estimat Glomerular Filtration 95 Rate Random Glucose 82 Calcium Level 8.0 Total Bilirubin 0.5 Aspartate Amino Transf 14 (AST/SGOT) Alanine Aminotransferase 17 (ALT/SGPT) Alkaline Phosphatase 35 Total Protein 6.0 Albumin 2.9 MDM Interpretation(s) This patient 26-year-old black female A1 with the hypermenorrhea causing secondary anemia, this is an ongoing problem since her last several years ago. She also tubal ligation with that procedure. She's tried conservative medical management for this problem for control pills and IUDs which were not tolerated her did not work. And I discussed with her the possibility of retrying some of those because she has no insurance and is having trouble having a surgical procedure. At this time she was to go ahead and have this surgical ablation done if possible by one of the CUSTODIAL OFFICER doctors in the community that she seen. Plan Plan the patient to try and obtain insurance so that easier for her to see a CUSTODIAL OFFICER doctor and schedule an endometrial ablation. I recommended a case with a history of 3 C-sections having an MRI done of the uterus and lower uterine segment to determine if it's a fairly thick structure there were no windows or defects possibly seen until prevent an ablation causing bowel injury Admitting diagnosis: symptomatic anemia, ureteral calculi Diagnosis: hypermenorrhea, anemia Scripts No Active Prescriptions or Reported Meds Dawood Fitzpatrick II, MD Mar 08, 2017 17:14
[2017-03-08 20:21] VITALS: BP 129/81; PULSE 85; RESP 20; TEMP 97.6; O2SAT 99
[2017-03-09 00:34] VITALS: BP 113/55; PULSE 89; RESP 19; TEMP 97.5; O2SAT 98
[2017-03-09] MEDS: MORPHINE SULFATE 4 MG/ML INJ IV PRN (03:28)
[2017-03-09 04:23] VITALS: BP 96/51; PULSE 77; RESP 18; TEMP 98.3; O2SAT 98
[2017-03-09] MEDS ORDERED: ACETAMINOPHEN/HYDROcodone 325 MG/5 MG TAB PO ONE (04:30)
[2017-03-09] MEDS: SODIUM CHLOR 0.9% 1000 ML INJ 1,000 ML IV SCH (05:34)
[2017-03-09 08:00] VITALS: BP 112/56; PULSE 76; RESP 18; TEMP 97.6; O2SAT 100
--- NOTE | 2017-03-09 08:32 | HHI.PR ---
Subjective Remarks pain meds help with back pain voiding spontaneously- grossly clear urine minimal vaginal spotting no dysuria up and ambulatin Objective Vitals Vital Signs Date Time Temp Pulse Resp B/P Pulse Ox O2 Delivery O2 Flow Rate FiO2 03/09/17 04:23 98.3 77 18 96/51 98 03/09/17 00:34 97.5 89 19 113/55 98 03/08/17 20:21 97.6 85 20 129/81 99 03/08/17 14:10 96.9 80 16 138/70 98 03/08/17 12:15 95.8 84 16 152/74 99 I/O 03/08/17 03/08/17 03/08/17 03/09/17 03/09/17 03/09/17 07:00 15:00 23:00 07:00 15:00 23:00 Intake Total 240 ml 1423 ml 480 ml 480 ml Output Total 900 ml Balance 240 ml 1423 ml -420 ml 480 ml Intake Oral 240 ml 1080 ml 480 ml 480 ml IV Total 343 ml Output Urine Total 900 ml # Voids 2 4 3 # Bowel Movements 1 0 0 Result Diagram: 03/08/17 0600 03/08/17 0600 Imaging Last Impressions Abdomen/Pelvis CT 03/07/17 0156 Signed Impressions: Service Date/Time: Tuesday, March 07, 2017 03:06 - CONCLUSION: 3 mm stone at the right UPJ causing hydronephrosis of the right kidney. Jim So MD Pelvis Ultrasound 03/07/17 0000 Signed Impressions: Service Date/Time: Tuesday, March 07, 2017 08:44 - CONCLUSION: 1. Isolated 1.7 x 1.5 x 2.2 cm small fibroid in the mid uterine body. Uterus is otherwise sonographically intact with a normal endometrial stripe. 2. Small, benign appearing 1 cm follicular type cysts in the left ovary. Ovaries are otherwise sonographically normal. 3. No free fluid. Patrick Stallworth MD Objective Remarks awake and alert oriented c 3 anicteric lungs clear regular rhythm abdomen-soft good bowel sounds, no CVA tenderness extremities no edema A/P Problem List: (1) Symptomatic anemia ICD Code: D64.9 Status: Acute (2) DUB (dysfunctional uterine bleeding) ICD Code: N93.8 Status: Acute (3) Hypokalemia ICD Code: E87.6 Status: Acute (4) Kidney stone on right side ICD Code: N20.0 Status: Acute (5) Obese ICD Code: E66.9 Status: Acute Assessment and Plan This is a 26-year-old female with history of dysfunctional uterine bleeding presenting with anemia Symptomatic iron deficiency anemia secondary to Dysfunction uterine bleeding =severe Iron deficiency anemia 6.0/20. s/p 2 units RBC- still weak from menorrhagia S/P 2 units RBC transfusion S/P give IV iron 200 mg IV start Iron bid d/w Dr. Fitzpatrick - OP ff up- referral - consider ablation vs hysterectomy- patient not desirous of any pregnancies- will ask CM to assist with OP referral- saw Dr. Shepherd in the past Ureterolithiasis - abdominal CT scan showed right UPJ stone, 3 mm with hydronephrosis, kidney function is normal, will likely spontaneously pass out. - not passed any stones yet- encourage po fluids- po pain meds on Flomax,- seen by Urology- OP ff up Hypokalemia-- corrected Obesity: Weight loss management advised- weight down- patient very motivated encourage increase ambulation CM- consult needs OP ff up set up- no insurance= patient assistance Jayshree Dumont MD Mar 09, 2017 08:31
[2017-03-09] MEDS ORDERED: ACETAMINOPHEN/HYDROcodone 325 MG/5 MG TAB PO PRN (08:45)
[2017-03-09] MEDS: TAMSULOSIN HCL 0.4 MG CAP PO SCH (08:53)
[2017-03-09] MEDS: SODIUM CHLORIDE 0.9% FLUSH 10 ML FLUSH IV FLUSH SCH (08:58)
[2017-03-09] MEDS ORDERED: FERROUS SULFATE 325 MG (65 MG ELEMENTAL IRON) TAB PO SCH (09:00)
[2017-03-09] MEDS ORDERED: ONDANSETRON ODT 4 MG TAB PO PRN (09:00)
[2017-03-09] MEDS ORDERED: PANTOPRAZOLE SOD 40 MG DELAYED RELEASE TAB PO SCH (09:00)
[2017-03-09 12:00] VITALS: BP 109/54; PULSE 87; RESP 18; TEMP 97.2; O2SAT 99
[2017-03-09] MEDS ORDERED: MORPHINE SULFATE 4 MG/ML INJ IV PRN (12:00)
[2017-03-09 13:20] LABS: HEMATOCRIT 26.5 % (35.0-46.0)
[2017-03-09] MEDS ORDERED: FERR325T PO (13:59)
[2017-03-09] MEDS ORDERED: TAMS5CAP PO (13:59)
[2017-03-09] MEDS ORDERED: PANT40TA3 PO (13:59)
[2017-03-09] MEDS ORDERED: HYDR-3516 PO (14:01)
[2017-03-09 15:52] VITALS: BP 115/60; PULSE 75; RESP 16; TEMP 96.8; O2SAT 99
[2017-03-21] MEDS ORDERED: TRAN650T PO (15:06)
[2017-03-21] MEDS ORDERED: METR500T10 PO (15:07)
== END 2017-03-09 17:14 | disposition home or self-care (01) | DRG 812 ==
LOC: NEPC 23:08 → NEDA 03-07 04:11 → N06A 03-07 05:01
PROVIDERS: ADMIT Internal Medicine; ATTEND Internal Medicine
PROC: 30253N1 (ICD-10-PCS; principal; 2017-03-07)
DX: D50.9 Iron deficiency anemia, unspecified (principal); N13.2 Hydronephrosis with renal and ureteral calculous obstruction; N93.8 Other specified abnormal uterine and vaginal bleeding; E87.6 Hypokalemia; J45.909 Unspecified asthma, uncomplicated; K21.9 Gastro-esophageal reflux disease without esophagitis; E66.9 Obesity, unspecified
CPT/HCPCS: 36430; 74177; 76856; 80053; 81001; 83540; 83550; 83690; 83735; 84703; 85014; 85018; 85025; 86140; 86850; 86900; 86901; 86920; 96361; 96374; 96375; J1756; J1885; J2270; J2405; J7030; P9016; Q9967

== ENCOUNTER 2017-06-07 12:28 | Emergency (ER) | payer MEDICAID ==
[~2017-06-07] VITALS: Ht 162.6 cm; Wt 117.9 kg
[~2017-06-07 12:28] MED LIST changes: -DIFL150T PO; +FERR325T PO; +HYDR-3516 PO; -MACR100C PO; +METR500T10 PO; +PANT40TA3 PO; +TAMS5CAP PO; -TIZA4 PO; +TRAN650T PO
[2017-06-07 12:39] VITALS: BP 140/93; PULSE 88; RESP 16; TEMP 98.6; O2SAT 98
[2017-06-07 13:17] LABS: BLOOD, URINE LARGE (NEG); GLUCOSE,URINE NEG (NEG); KETONE, URINE NEG (NEG); NITRITE,URINE NEG (NEG); PH, URINE 5.5 (5.0-8.5)
[2017-06-07 13:23] LABS: METHOD OF COLLECTION CLEAN CATCH; URINE COLOR YELLOW (YELLW/STRAW)
[2017-06-07 13:24] LABS: COMMENT (UR) CULT NOT INDICATED; CULTURE IF INDICATED CULT NOT INDICATED; RBC, URINE 100-200 /hpf (0-3); SQUAMOUS EPITHELIAL CELL URINE > 8 /hpf (0-5)
[2017-06-07] MEDS ORDERED: ONDANSETRON HCL 4 MG/2 ML VIAL IV PUSH ONE (14:00)
[2017-06-07] MEDS ORDERED: SODIUM CHLOR 0.9% 1000 ML INJ 1,000 ML IV ONE (14:00)
[2017-06-07] MEDS ORDERED: KETOROLAC TROMETHAMINE 30 MG/ML (IVP) VIAL IV PUSH ONE (14:00)
[2017-06-07] MEDS ORDERED: FERR325T8 PO (14:06)
[2017-06-07 14:36] LABS: AUTOMATED NEUTROPHIL # 7.6 TH/MM3 (1.8-7.7); BASOPHIL # 0.2 TH/MM3 (0-0.2); BASOPHIL % 1.7 % (0.0-2.0); EOSINOPHIL # 0.2 TH/MM3 (0-0.4); HEMATOCRIT 32.2 % (35.0-46.0); LYMPH % 14.3 % (9.0-44.0); LYMPHOCYTE # 1.5 TH/MM3 (1.0-4.8); MEAN CELL VOLUME 72.2 FL (80.0-100.0); MEAN CORPUSCULAR HEMOGLOBIN 23.2 PG (27.0-34.0); MEAN CORPUSCULAR HGB CONC 32.2 % (32.0-36.0); MONO % 6.4 % (0.0-8.0); NEUT % 75.6 % (16.0-70.0); PLATELET COUNT 425 TH/MM3 (150-450); RED BLOOD COUNT 4.47 MIL/MM3 (4.00-5.30); RED CELL DISTRIBUTION WIDTH 17.5 % (11.6-17.2); WHITE BLOOD COUNT 10.2 TH/MM3 (4.0-11.0)
[2017-06-07 14:39] LABS: HEMO FLAGS AUTO DIFF
[2017-06-07 14:50] LABS: CHLORIDE 111 MEQ/L (98-107); POTASSIUM 3.9 MEQ/L (3.5-5.1); SODIUM (NA) 143 MEQ/L (136-145)
[2017-06-07 14:55] LABS: ANION GAP 7 MEQ/L (5-15); BICARBONATE 25.1 MEQ/L (21.0-32.0); BLOOD UREA NITROGEN 14 MG/DL (7-18)
[2017-06-07 14:58] LABS: ALT (GPT) 18 U/L (10-53); AST (GOT) 13 U/L (15-37); GLOMERULAR FILTRATION RATE 127 ML/MIN (>89)
[2017-06-07 14:59] LABS: TOTAL BILIRUBIN ADULT 0.2 MG/DL (0.2-1.0)
[2017-06-07 15:01] LABS: ALKALINE PHOSPHATASE 50 U/L (45-117)
[2017-06-07 15:09] LABS: TARGET CELLS 1+ (NORMAL)
[2017-06-07 15:10] LABS: SCAN/DIFF AUTO DIFF CONFIRMED
--- NOTE | 2017-06-07 15:11 | PD ---
HPI Chief Complaint: General Weakness Time Seen by Provider: 13:47 Travel History International Travel<30 days: No Contact w/Intl Traveler<30days: No Traveled to known affect area: No History of Present Illness HPI Patient is a 26 year old female who comes in complaining of generalized weakness. She says she has been having issues with heavy menstrual periods, and she is currently on her period. She says that this is her second day and last night she was passing large clots. She also complains of some lower abdominal pain and back pain, which she says feels like when she had a kidney stone in the past. She says she has occasional nausea. She denies any vomiting. She denies dysuria. She denies fever or chills. She says she feels lightheaded. PFSH Past Medical History Hx Anticoagulant Therapy: No Anemia: Yes Arthritis: Yes (gout) Asthma: Yes Autoimmune Disease: No Anxiety: No Depression: Yes Heart Rhythm Problems: No Cancer: No Cardiovascular Problems: Yes (heart mumur) High Cholesterol: No Chemotherapy: No Chest Pain: No Congestive Heart Failure: No COPD: No Cerebrovascular Accident: No Diabetes: No Diminished Hearing: No Endocrine: No GERD: No Genitourinary: Yes Hiatal Hernia: No Immune Disorder: No Kidney Stones: Yes Musculoskeletal: Yes (gout) Neurologic: Yes Psychiatric: Yes Respiratory: No Immunizations Current: Yes Migraines: Yes Radiation Therapy: No Renal Failure: No Seizures: No Sleep Apnea: No Thyroid Disease: No Ulcer: No Tetanus Vaccination: < 5 Years Influenza Vaccination: Yes ?: Not LMP: NOW/TUBAL : 4 Para: 3 : 1 Tubal Ligation: Yes Past Surgical History Abdominal Surgery: No Cardiac Surgery: No Section: Yes (3 C-SECTIONS 2007 AND 2011) Ear Surgery: No Endocrine Surgery: No Eye Surgery: No Genitourinary Surgery: No Gynecologic Surgery: Yes (3- ,,tubal) Hysterectomy: No (TUBAL 2012) Oral Surgery: Yes (wisdom teeth removed) Thoracic Surgery: No Other Surgery: Yes Social History Alcohol Use: Yes (occ) Tobacco Use: No Substance Use: Yes Allergies-Medications (Allergen,Severity, Reaction): Coded Allergies: Lomotil (Verified Allergy, Severe, HIVES, 06/07/17) Reported Meds & Prescriptions Reported Meds & Active Scripts Active Tranexamic Acid 650 Mg Tab 1,300 Mg PO TID Reported Ferrous Sulfate 325 Mg (65 Mg Iron) Tablet 325 Mg PO BIDPC Review of Systems Except as stated in HPI: all other systems reviewed are Neg General / Constitutional: No: Fever, Chills Eyes: No: Blurred Vision HENT: Positive: Lightheadedness, No: Headaches Cardiovascular: No: Chest Pain or Discomfort Respiratory: No: Shortness of Breath Gastrointestinal: Positive: Nausea, Abdominal Pain, No: Vomiting Genitourinary: Positive: Flank Pain, Vaginal Bleeding Skin: No Rash, No Change in Pigmentation Neurologic: Positive: Dizziness Physical Exam Narrative GENERAL: Awake and alert, in no acute distress. SKIN: Focused skin assessment warm/dry. HEAD: Atraumatic. Normocephalic. EYES: Pupils equal and round. No scleral icterus. ENT: Mucous membranes pink and moist. NECK: Trachea midline. No JVD. CARDIOVASCULAR: Regular rate and rhythm. No murmur appreciated. RESPIRATORY: No accessory muscle use. Clear to auscultation. Breath sounds equal bilaterally. GASTROINTESTINAL: Abdomen soft, nondistended. Mild tenderness to palpation of the suprapubic area. No rebound or guarding. MUSCULOSKELETAL: No obvious deformities. No clubbing. No cyanosis. No edema. NEUROLOGICAL: Awake and alert. No obvious cranial nerve deficits. Motor grossly within normal limits. Normal speech. PSYCHIATRIC: Appropriate mood and affect; insight and judgment normal. Data Data Last Documented VS Vital Signs Date Time Temp Pulse Resp B/P Pulse Ox O2 Delivery O2 Flow Rate FiO2 06/07/17 12:39 98.6 88 16 140/93 98 Orders Urinalysis - C+S If Indicated (06/07/17 13:05) Complete Blood Count With Diff (06/07/17 13:56) Comprehensive Metabolic Panel (06/07/17 13:56) Ed Urine Pregnancytest Poc (06/07/17 13:56) Ct Abd/Pel W/O Iv Contrast (06/07/17 ) Iv Access Insert/Monitor (06/07/17 13:56) Ketorolac Inj (Toradol Inj) (06/07/17 14:00) Sodium Chlor 0.9% 1000 Ml Inj (Ns 1000 M (06/07/17 14:00) Ondansetron Inj (Zofran Inj) (06/07/17 14:00) Type And Screen (06/07/17 13:57) Labs Laboratory Tests Test 06/07/17 06/07/17 13:10 14:30 Urine Collection Type CLEAN CATCH Urine Color YELLOW Urine Turbidity SLIGHT Urine pH 5.5 Urine Specific [place] 1.026 Urine Protein TRACE mg/dL Urine Glucose (UA) NEG mg/dL Urine Ketones NEG mg/dL Urine Occult Blood LARGE Urine Nitrite NEG Urine Bilirubin NEG Urine Leukocyte Esterase NEG Urine RBC 100-200 /hpf Urine WBC 3-5 /hpf Urine Squamous Epithelial > 8 /hpf Cells Microscopic Urinalysis Comment CULT NOT INDICATED Urine Collection Time 13:10 White Blood Count 10.2 TH/MM3 Red Blood Count 4.47 MIL/MM3 Hemoglobin 10.4 GM/DL Hematocrit 32.2 % Mean Corpuscular Volume 72.2 FL Mean Corpuscular Hemoglobin 23.2 PG Mean Corpuscular Hemoglobin 32.2 % Concent Red Cell Distribution Width 17.5 % Platelet Count 425 TH/MM3 Mean Platelet Volume 8.1 FL Neutrophils (%) (Auto) 75.6 % Lymphocytes (%) (Auto) 14.3 % Monocytes (%) (Auto) 6.4 % Eosinophils (%) (Auto) 2.0 % Basophils (%) (Auto) 1.7 % Neutrophils # (Auto) 7.6 TH/MM3 Lymphocytes # (Auto) 1.5 TH/MM3 Monocytes # (Auto) 0.7 TH/MM3 Eosinophils # (Auto) 0.2 TH/MM3 Basophils # (Auto) 0.2 TH/MM3 CBC Comment AUTO DIFF Differential Comment AUTO DIFF CONFIRMED Target Cells 1+ Sodium Level 143 MEQ/L Potassium Level 3.9 MEQ/L Chloride Level 111 MEQ/L Carbon Dioxide Level 25.1 MEQ/L Anion Gap 7 MEQ/L Blood Urea Nitrogen 14 MG/DL Creatinine 0.68 MG/DL Estimat Glomerular Filtration 127 ML/MIN Rate Random Glucose 98 MG/DL Calcium Level 8.3 MG/DL Total Bilirubin 0.2 MG/DL Aspartate Amino Transf 13 U/L (AST/SGOT) Alanine Aminotransferase 18 U/L (ALT/SGPT) Alkaline Phosphatase 50 U/L Total Protein 7.2 GM/DL Albumin 3.2 GM/DL [facility] Medical Decision Making Medical Screen Exam Complete: Yes Emergency Medical Condition: Yes Medical Record Reviewed: Yes Differential Diagnosis anemia vs dysfunctional uterine bleeding vs UTI vs renal stone Narrative Course Patient is a 26 year old female who comes in complaining of generalized weakness with some dizziness. Exam shows suprapubic tenderness. IV established , labs sent. Hgb is 10.7, much improved from her last visit. Given IVF, Toradol, Zofran. CT abd/pelvis performed shows a 3mm nonobstructing stone. Patient is comfortable, resting in the room. Referral placed to university librarian. She is advised to continue taking her iron and drink plenty of fluids. Advised to follow up with gynecology. Advised to return to the ED as needed for any worsening symptoms. Diagnosis Primary Impression: Kidney stone on right side Additional Impression: Menorrhagia Qualified Code: N92.0 - Menorrhagia with regular cycle Patient Instructions: General Instructions, Kidney Stones (ED), Menorrhagia (ED ) Additional Instructions: Drink plenty of fluids. Continue taking Iron. Follow up with gynecology. Return to the ED as needed for any worsening symptoms. Disposition: 01 DISCHARGE HOME Condition: Stable Peyton Sierra MD Jun 07, 2017 15:11
--- NOTE | 2017-06-07 15:12 | RADRPT ---
EXAM DATE/TIME: 06/07/2017 14:35 [place] COMPARISON: No previous studies available for comparison. INDICATIONS : Lower abdominal pain and weakness. Evaluate for calculi. ORAL CONTRAST: No oral contrast ingested. RADIATION DOSE: 23.89 CTDIvol (mGy) MEDICAL HISTORY : None SURGICAL HISTORY : Tubal ligation. ENCOUNTER: Initial ACUITY: 1 day PAIN SCALE: 4/10 LOCATION: lower quadrant TECHNIQUE: Volumetric scanning of the abdomen and pelvis was performed. Using automated exposure control and adjustment of the mA and/or kV according to patient size, radiation dose was kept as low as reasonably achievable to obtain optimal diagnostic quality images. DICOM format image data is av ailable electronically for review and comparison. FINDINGS: LOWER LUNGS: The visualized lower lungs are clear. LIVER: Homogeneous density without lesion. There is no dilation of the biliary tree. No calcifi ed gallstones. SPLEEN: Normal size without lesion. PANCREAS: Within normal limits. KIDNEYS: Normal in size and shape. There is no mass or hydronephrosis. There is a tiny 3 mm calc ified nonobstructing right renal calculus. ADRENAL GLANDS: Within normal limits. VASCULAR: There is no aortic aneurysm. BOWEL/MESENTERY: The stomach, small bowel, and colon demonstrate no acute abnormality. There is no free intraperitoneal air or fluid. ABDOMINAL WALL: There is a small midline umbilical hernia containing only fat. RETROPERITONEUM: There is no lymphadenopathy. BLADDER: No wall thickening or mass. REPRODUCTIVE: Within normal limits. INGUINAL: There is no lymphadenopathy or hernia. MUSCULOSKELETAL: Within normal limits for patient age. CONCLUSION: 1. Tiny 3 mm calcified nonobstructing right renal calculus. 2. No acute obstructive uropathy. 3. Small umbilical hernia containing only fat. Nikita Fierro MD on June 07, 2017 at 15:06 Board Certified Radiologist. This report was verified electronically.
== END 2017-06-07 16:03 | disposition home or self-care (01) ==
LOC: PHED 12:28
DX: N20.0 Calculus of kidney (principal); N92.0 Excessive and frequent menstruation with regular cycle; R53.1 Weakness; R42 Dizziness and giddiness; R11.0 Nausea; Z86.2 Personal history of diseases of the blood and blood-forming organs and certain disorders involving the immune mechanism; Z87.39 Personal history of other diseases of the musculoskeletal system and connective tissue; Z87.09 Personal history of other diseases of the respiratory system; Z86.59 Personal history of other mental and behavioral disorders; Z86.79 Personal history of other diseases of the circulatory system; Z87.448 Personal history of other diseases of urinary system; Z86.69 Personal history of other diseases of the nervous system and sense organs
CPT/HCPCS: 74176; 80053; 81001; 84703; 85025; 86850; 86900; 86901; 96374; 96375; 99285; J1885; J2405; J7030

== ENCOUNTER 2017-11-14 07:01 | Emergency (ER) | payer MEDICAID ==
[~2017-11-14] VITALS: Ht 162.6 cm; Wt 113.0 kg
[~2017-11-14 07:01] MED LIST changes: -FERR325T PO; +FERR325T18 PO; -HYDR-3516 PO; -METR500T10 PO; -PANT40TA3 PO; -TAMS5CAP PO
[2017-11-14 07:11] VITALS: BP 136/85; PULSE 94; RESP 26; TEMP 98; O2SAT 99
[2017-11-14] MEDS ORDERED: SODIUM CHLOR 0.9% 1000 ML INJ 1,000 ML IV ONE (07:13)
[2017-11-14 07:14] VITALS: BP 136/85; PULSE 93; RESP 20; TEMP 98; O2SAT 99
[2017-11-14] MEDS ORDERED: SODIUM CHLORIDE 0.9% FLUSH 10 ML FLUSH IVF PRN (07:15)
[2017-11-14] MEDS ORDERED: ONDANSETRON HCL 4 MG/2 ML VIAL IVP ONE (07:15)
--- NOTE | 2017-11-14 07:16 | PD ---
HPI Chief Complaint: Syncope/Near-Syncope Time Seen by Provider: 07:13 Travel History International Travel<30 days: No Contact w/Intl Traveler<30days: No Traveled to known affect area: No History of Present Illness HPI on her period, has a history of heavy menses and an admission for anemia with hb 6 last time....today feels dizzy and lightheaded specially when standing up, has started taking iron supplements over last few days, PFSH Past Medical History Hx Anticoagulant Therapy: No Anemia: Yes Arthritis: Yes (gout) Asthma: Yes Autoimmune Disease: No Anxiety: No Depression: Yes Heart Rhythm Problems: No Cancer: No Cardiovascular Problems: Yes (heart mumur) High Cholesterol: No Chemotherapy: No Chest Pain: No Congestive Heart Failure: No COPD: No Cerebrovascular Accident: No Diabetes: No Diminished Hearing: No Endocrine: No GERD: No Genitourinary: Yes Hiatal Hernia: No Immune Disorder: No Kidney Stones: Yes Musculoskeletal: Yes (gout) Neurologic: Yes Psychiatric: Yes Respiratory: No Immunizations Current: Yes Migraines: Yes Radiation Therapy: No Renal Failure: No Seizures: No Sleep Apnea: No Thyroid Disease: No Ulcer: No ?: Not LMP: 11/13/17 : 4 Para: 3 : 1 Tubal Ligation: Yes Past Surgical History Abdominal Surgery: No Cardiac Surgery: No Section: Yes (3 C-SECTIONS 2007 AND 2011) Ear Surgery: No Endocrine Surgery: No Eye Surgery: No Genitourinary Surgery: No Gynecologic Surgery: Yes (3- ,,tubal) Hysterectomy: No (TUBAL 2012) Oral Surgery: Yes (wisdom teeth removed) Thoracic Surgery: No Other Surgery: Yes Social History Alcohol Use: Yes (occ) Tobacco Use: No Substance Use: Yes Allergies-Medications (Allergen,Severity, Reaction): Coded Allergies: atropine (Unverified Allergy, Severe, HIVES, 11/14/17) diphenoxylate (Unverified Allergy, Severe, HIVES, 11/14/17) Reported Meds & Prescriptions Reported Meds & Active Scripts Active Reported Ferrous Sulfate 325 Mg (65 Mg Iron) Tablet 325 Mg PO BIDPC Review of Systems General / Constitutional: No: Fever Eyes: No: Visual changes HENT: Positive: Lightheadedness (near syncope) Cardiovascular: No: Chest Pain or Discomfort Respiratory: No: Shortness of Breath Gastrointestinal: No: Abdominal Pain Genitourinary: No: Dysuria Musculoskeletal: No: Pain Skin: No Rash Neurologic: No: Weakness Psychiatric: No: Depression Endocrine: No: Polydipsia Hematologic/Lymphatic: No: Easy Bruising Physical Exam Narrative GENERAL: SKIN: Warm and dry. HEAD: Atraumatic. Normocephalic. EYES: Pupils equal and round. No scleral icterus. No injection or drainage. ENT: No nasal bleeding or discharge. Mucous membranes pink and moist. NECK: Trachea midline. No JVD. CARDIOVASCULAR: Regular rate and rhythm. RESPIRATORY: No accessory muscle use. Clear to auscultation. Breath sounds equal bilaterally. GASTROINTESTINAL: Abdomen soft, non-tender, nondistended. MUSCULOSKELETAL: Extremities without clubbing, cyanosis, or edema. No obvious deformities. NEUROLOGICAL: Awake and alert. No obvious cranial nerve deficits. Motor grossly within normal limits. Five out of 5 muscle strength in the arms and legs. Normal speech. PSYCHIATRIC: Appropriate mood and affect; insight and judgment normal. Data Data Last Documented VS Vital Signs Date Time Temp Pulse Resp B/P (MAP) Pulse Ox O2 Delivery O2 Flow Rate FiO2 11/14/17 09:29 11/14/17 09:21 68 14 100 Room Air 11/14/17 07:14 98.0 Orders Orders Electrocardiogram (11/14/17 07:13) Ed Urine Pregnancytest Poc (11/14/17 07:13) Complete Blood Count With Diff (11/14/17 07:13) Comprehensive Metabolic Panel (11/14/17 07:13) Troponin I (11/14/17 07:13) Act Partial Throm Time (Ptt) (11/14/17 07:13) Prothrombin Time / Inr (Pt) (11/14/17 07:13) Ecg Monitoring (11/14/17 07:13) Iv Access Insert/Monitor (11/14/17 07:13) Oximetry (11/14/17 07:13) Ondansetron Inj (Zofran Inj) (11/14/17 07:15) Sodium Chloride 0.9% Flush (Ns Flush) (11/14/17 07:15) Sodium Chlor 0.9% 1000 Ml Inj (Ns 1000 M (11/14/17 07:13) Ed Discharge Order (11/14/17 08:40) Labs Laboratory Tests Test 11/14/17 07:20 White Blood Count 7.1 TH/MM3 Red Blood Count 4.87 MIL/MM3 Hemoglobin 9.3 GM/DL Hematocrit 30.4 % Mean Corpuscular Volume 62.3 FL Mean Corpuscular Hemoglobin 19.0 PG Mean Corpuscular Hemoglobin Concent 30.6 % Red Cell Distribution Width 19.1 % Platelet Count 411 TH/MM3 Mean Platelet Volume 8.8 FL Neutrophils (%) (Auto) 54.7 % Lymphocytes (%) (Auto) 28.2 % Monocytes (%) (Auto) 13.5 % Eosinophils (%) (Auto) 3.0 % Basophils (%) (Auto) 0.6 % Neutrophils # (Auto) 3.9 TH/MM3 Lymphocytes # (Auto) 2.0 TH/MM3 Monocytes # (Auto) 1.0 TH/MM3 Eosinophils # (Auto) 0.2 TH/MM3 Basophils # (Auto) 0.0 TH/MM3 CBC Comment DIFF FINAL Differential Comment Prothrombin Time 10.6 SEC Prothromb Time International Ratio 1.0 RATIO Activated Partial Thromboplast Time 22.4 SEC Blood Urea Nitrogen 20 MG/DL Creatinine 0.67 MG/DL Random Glucose 109 MG/DL Total Protein 7.7 GM/DL Albumin 3.6 GM/DL Calcium Level 8.5 MG/DL Alkaline Phosphatase 47 U/L Aspartate Amino Transf (AST/SGOT) 14 U/L Alanine Aminotransferase (ALT/SGPT) 19 U/L Total Bilirubin 0.2 MG/DL Sodium Level 139 MEQ/L Potassium Level 3.1 MEQ/L Chloride Level 109 MEQ/L Carbon Dioxide Level 21.5 MEQ/L Anion Gap 9 MEQ/L Estimat Glomerular Filtration Rate 128 ML/MIN Troponin I LESS THAN 0.02 NG/ML [facility] Medical Decision Making Medical Screen Exam Complete: Yes Emergency Medical Condition: Yes Medical Record Reviewed: Yes Interpretation(s) ekg: nsr 98 nl intervals, no stemi pattern Differential Diagnosis near syncope v anemia v dehydration v electrolyte abnl Narrative Course pt had nl lft's/kidney function. found to be mildly anemic, not orthostatic clinically. vss, patient is clincally stable to follow up as outpatient with her obgyn. Diagnosis Primary Impression: Near syncope Additional Impression: Anemia Qualified Codes: D64.9 - Anemia, unspecified Patient Instructions: Anemia (ED), General Instructions, Near Syncope (ED) Disposition: 01 DISCHARGE HOME Condition: Stable Keo Liao MD Nov 14, 2017 07:16
[2017-11-14 07:21] VITALS: O2SAT 99
[2017-11-14 07:45] VITALS: BP 140/77; PULSE 77; RESP 22; O2SAT 98
[2017-11-14 07:47] LABS: AUTOMATED NEUTROPHIL # 3.9 TH/MM3 (1.8-7.7); BASOPHIL % 0.6 % (0.0-2.0); EOSINOPHIL # 0.2 TH/MM3 (0-0.4); HEMATOCRIT 30.4 % (35.0-46.0); HEMOGLOBIN 9.3 GM/DL (11.6-15.3); LYMPH % 28.2 % (9.0-44.0); MEAN CELL VOLUME 62.3 FL (80.0-100.0); MEAN CORPUSCULAR HGB CONC 30.6 % (32.0-36.0); MEAN PLATELET VOLUME 8.8 FL (7.0-11.0); MONO % 13.5 % (0.0-8.0); NEUT % 54.7 % (16.0-70.0); PLATELET COUNT 411 TH/MM3 (150-450); RED BLOOD COUNT 4.87 MIL/MM3 (4.00-5.30); RED CELL DISTRIBUTION WIDTH 19.1 % (11.6-17.2); WHITE BLOOD COUNT 7.1 TH/MM3 (4.0-11.0)
[2017-11-14 07:55] LABS: PROTHROMBIN TIME - PATIENT 10.6 SEC (9.8-11.6)
[2017-11-14 08:13] LABS: ALBUMIN 3.6 GM/DL (3.4-5.0); ALT (GPT) 19 U/L (10-53); AST (GOT) 14 U/L (15-37); BICARBONATE 21.5 MEQ/L (21.0-32.0); BLOOD UREA NITROGEN 20 MG/DL (7-18); CALCIUM 8.5 MG/DL (8.5-10.1); CHLORIDE 109 MEQ/L (98-107); CREATININE 0.67 MG/DL (0.50-1.00); GLOMERULAR FILTRATION RATE 128 ML/MIN (>89); GLUCOSE,RANDOM 109 MG/DL (74-106); SODIUM (NA) 139 MEQ/L (136-145)
[2017-11-14 08:17] LABS: ALKALINE PHOSPHATASE 47 U/L (45-117); TOTAL BILIRUBIN ADULT 0.2 MG/DL (0.2-1.0); TOTAL PROTEIN 7.7 GM/DL (6.4-8.2); TROPONIN I LESS THAN 0.02 NG/ML (0.02-0.05)
[2017-11-14 09:21] VITALS: BP 126/68; PULSE 68; RESP 14; O2SAT 100
--- NOTE | 2017-11-15 17:37 | EKG ---
Date Performed: 11/14/2017 Time Performed: 07:10:55 PTAGE: 27 years EKG: Sinus rhythm NORMAL ECG PREVIOUS TRACING 04/01/14 DOCTOR: Sarah Xavier Interpretating Date/Time 11/15/2017 17:36:11
== END 2017-11-14 09:34 | disposition home or self-care (01) ==
LOC: NEPE 07:01
DX: R55 Syncope and collapse (principal); D64.9 Anemia, unspecified; R42 Dizziness and giddiness; M10.9 Gout, unspecified; J45.909 Unspecified asthma, uncomplicated; F32.9 Major depressive disorder, single episode, unspecified; R01.1 Cardiac murmur, unspecified; Z87.442 Personal history of urinary calculi; Z79.899 Other long term (current) drug therapy
CPT/HCPCS: 80053; 84484; 84703; 85025; 85610; 85730; 93005; 96361; 96374; 99284; J2405; J7030

== ENCOUNTER 2018-10-06 22:31 | Observation (INO) ==
--- NOTE | 2018-10-06 22:58 | ED ---
HPI General Chief complaint: Weakness Stated complaint: Sore/Weak/Can't Eat/Sleep x3Days Time Seen by Provider: 10/06/18 22:40 Source: patient Mode of arrival: ambulatory Limitations: no limitations History of Present Illness HPI narrative: 28yo F with PMH of anemia presents to the ED with c/o nausea, generalized weakness, fever today. Said she was having diarrhea for a few days and that has improved but started not feeling well again today. +Cough. +Mild sob. Mild throat pain. Denies any chest pain, vomiting, abdominal pain, dysuria, hematuria, focal weakness or numbness. Denies any history of PE or DVT. Related Data Home Medications Medication Instructions Recorded Confirmed ferrous sulfate [iron] 325 mg PO BID 10/07/18 10/07/18 Allergies Allergy/AdvReac Type Severity Reaction Status Date / Time atropine Allergy Severe HIVES Verified 10/07/18 00:26 diphenoxylate Allergy Severe HIVES Verified 10/07/18 00:26 Review of Systems ROS: all other systems reviewed are negative [facility] Medical History Medical History Anemia (Acute) Kidney stones (Acute) Surgical History Surgical History H/O tubal ligation (Acute) Previous section (Acute) Social History Social History Substance History: No History of Abuse Second Hand Smoke Exposure: No Smoking Status: Never smoker How Often Do You Have a Drink Containing Alcohol: Never Exam Narrative Exam Narrative: GEN: 28yo F in mild distress. SKIN: Warm and dry. EYES: Pupils 4mm and reactive to light. EOMI. ENT: Throat: Uvula midline. Mild erythema. No tonsillar exudate. NECK: +TTP right anterior cervical lymph node. No nuchal rigidity. CV: Mild tachycardia at 120s. Lungs: CTA B/L, equal breath sounds. Abd: soft, NT/ND. No rebound tenderness or guarding. EXT: No edema or calf tenderness. NEURO: No focal neurologic deficits. Muscle strength 5/5. Sensation intact. Normal speech. Course Initial Documented Vital Signs Temperature 99.4 F 10/06/18 22:34 Pulse Rate 124 H 10/06/18 22:34 Respiratory Rate 18 10/06/18 22:34 Blood Pressure 132/78 10/06/18 22:34 Pulse Oximetry 100 10/06/18 22:34 Last Documented Vital Signs Temperature 99.4 F 10/06/18 22:34 Pulse Rate 180 H 10/07/18 02:03 Respiratory Rate 20 10/07/18 02:20 Blood Pressure 105/69 10/07/18 02:03 Pulse Oximetry 99 10/07/18 02:03 Medical Decision Making [facility] Narrative Medical decision making narrative: 28yo F with iron deficiency anemia noncompliant with taking iron here with many vague symptoms including generalized weakness and sob. Group A strep and influenza negative. Pt said she is febrile at home but not febrile here. She is tachycardic. Labs reviewed , no leukocytosis. H/H low at 6.3/22.6. MVC is 55.4. BMP unremarkable. Lactic acid normal. Troponin negative. UA showed WBC 0-5. CXR negative. Pt denies any blood in stool. Rectal exam showed brown stool, there is a faint blue line but there was not much stool, so it is positive. 2 units of RBC ordered and ordered transfusion of 1 unit PRBC. Discussed with Dr. Reyes for admission for symptomatic anemia. Medical Screen Exam Complete: Yes Emergency Medical Condition: Yes Differential Diagnosis Differential Diagnosis: Dehydration vs. viral syndrome vs. sepsis vs. pneumonia vs. symptomatic anemia Lab Data Result diagrams: 10/06/18 23:45 10/06/18 22:55 POC Results POC Urine Results Negative Lab Results 10/06/18 10/06/18 10/06/18 Range/Units 00:12 22:55 22:55 CBC w Diff WBC (4.0-11.0) th/mm3 RBC (4.00-5.30) mil/mm3 Hgb (11.6-15.3) gm/dL Hct (35.0-46.0) % MCV (80.0-100.0) fL MCH (27.0-34.0) pg MCHC (32.0-36.0) % RDW (11.6-17.2) % Plt Count (150-450) th/mm3 MPV (7.0-11.0) fL WBC Differential Seg Neuts % (Manual) (16-70) % Lymphocytes % (Manual) (9-44) % Monocytes % (Manual) (0-8) % Abs Neuts (Manual) (1.8-7.7) th/mm3 Differential Comment Platelet Estimate (Normal) Platelet Morphology (Normal) Dimorphic RBCs (None) Target Cells (None) Tear Drop Cells (None) Ovalocytes (None) PT 11.0 (9.8-11.6) sec INR 1.1 Ratio APTT 24.2 (23.4-31.7) sec Sodium 136 (136-145) meq/L Potassium 3.7 (3.5-5.1) meq/L Chloride 106 (98-107) meq/L Carbon Dioxide 20.5 L (21.0-32.0) meq/L Anion Gap 10 (5-15) meq/L BUN 13 (7-18) mg/dL Creatinine 0.67 (0.50-1.00) mg/dL Estimated GFR Greater than 89 (>89) mL/min Random Glucose 95 (74-106) mg/dL Lactic Acid (0.4-2.0) mmol/L Calcium 8.3 L (8.5-10.1) mg/dL Troponin I Less than 0.02 L (0.02-0.05) ng/mL Urine Color (Yellw/Straw) Urine Clarity (Clear) Urine pH (5.0-8.5) Ur Specific [place] (1.002-1.035) Urine Protein (Neg-Trace) mg/dL Urine Glucose (UA) (Negative) mg/dL Urine Ketones (Negative) mg/dL Urine Occult Blood (Negative) Urine Nitrate (Negative) Urine Bilirubin (Negative) Urine Urobilinogen (Less than 2) mg/dL Ur Leukocyte Esterase (Negative) Urine WBC (0-5) /hpf Ur Squamous Epith Cells (0-5) /hpf Urine Bacteria (None) /hpf Urine Mucus (Occasional) /lpf Micro UA Comment Ur Microscopic Review Urine Culture Comments Blood Type A Positive Antibody Screen Negative MTS Gel Crossmatch See Detail 10/06/18 10/06/18 10/06/18 Range/Units 23:05 23:45 23:59 CBC w Diff Slide review pending WBC 8.7 (4.0-11.0) th/mm3 RBC 4.07 (4.00-5.30) mil/mm3 Hgb 6.3 L* (11.6-15.3) gm/dL Hct 22.6 L (35.0-46.0) % MCV 55.4 L (80.0-100.0) fL MCH 15.6 L (27.0-34.0) pg MCHC 28.1 L (32.0-36.0) % RDW 20.3 H (11.6-17.2) % Plt Count 336 (150-450) th/mm3 MPV 8.0 (7.0-11.0) fL WBC Differential Manual diff final Seg Neuts % (Manual) 91 H (16-70) % Lymphocytes % (Manual) 6 L (9-44) % Monocytes % (Manual) 3 (0-8) % Abs Neuts (Manual) 7.9 H (1.8-7.7) th/mm3 Differential Comment . Platelet Estimate Normal (Normal) Platelet Morphology Normal (Normal) Dimorphic RBCs Present H (None) Target Cells 1+ H (None) Tear Drop Cells 1+ H (None) Ovalocytes 1+ H (None) PT (9.8-11.6) sec INR Ratio APTT (23.4-31.7) sec Sodium (136-145) meq/L Potassium (3.5-5.1) meq/L Chloride (98-107) meq/L Carbon Dioxide (21.0-32.0) meq/L Anion Gap (5-15) meq/L BUN (7-18) mg/dL Creatinine (0.50-1.00) mg/dL Estimated GFR (>89) mL/min Random Glucose (74-106) mg/dL Lactic Acid 1.1 (0.4-2.0) mmol/L Calcium (8.5-10.1) mg/dL Troponin I (0.02-0.05) ng/mL Urine Color Yellow (Yellw/Straw) Urine Clarity Clear (Clear) Urine pH 6.0 (5.0-8.5) Ur Specific [place] 1.025 (1.002-1.035) Urine Protein Negative (Neg-Trace) mg/dL Urine Glucose (UA) Negative (Negative) mg/dL Urine Ketones Trace H (Negative) mg/dL Urine Occult Blood Negative (Negative) Urine Nitrate Negative (Negative) Urine Bilirubin Negative (Negative) Urine Urobilinogen 0.2 (Less than 2) mg/dL Ur Leukocyte Esterase Negative (Negative) Urine WBC 0-5 (0-5) /hpf Ur Squamous Epith Cells 0-5 (0-5) /hpf Urine Bacteria Occasional H (None) /hpf Urine Mucus Moderate H (Occasional) /lpf Micro UA Comment Culture not ind Ur Microscopic Review Microscopic reviewed Urine Culture Comments Culture not ind Blood Type Antibody Screen MTS Gel Crossmatch Imaging Data Radiologist's impression: Chest X-Ray 10/06/18 22:48 CONCLUSION: No acute findings. ECG Data EKG Prior to Arrival: No Attestation: I personally reviewed and interpreted this ECG as follows: Interpretation: Sinus tachycardia at 123bpm. Normal axis. W[place] interval 161ms. No ST elevation or depression. Discharge Plan Discharge Disposition Patient Disposition: 30 Still Patient Discharge Details Diagnosis: Symptomatic anemia Physicians Team ED Provider: Kajal Cherry Primary Care Provider: Primary Care Isabel Menendez Attending Provider: Dilia López Status ED Status: Left Department Discharge Information Discharge Date/Time: 10/07/18 02:16
[2018-10-06] MEDS ORDERED: Sod Chloride 0.9% Inj 1,000 ML IV.SIG SCH (23:00)
--- NOTE | 2018-10-06 23:17 | XR ---
EXAM DATE: 10/06/2018 11:13 PM EST AGE/SEX: 28 years / Female INDICATIONS: Weakness, cough. CLINICAL DATA: This is the patient's initial encounter. Patient reports that signs and symptoms have been present for 3 days and indicates a pain score of 0/10. MEDICAL/SURGICAL HISTORY: None. Tubal ligation. COMPARISON: No prior exams available for comparison. FINDINGS: A single AP view of the chest demonstrates the lungs to be symmetrically aerated without evidence of mass, infiltrate or effusion. The cardiomediastinal contours are unremarkable. Osseous structures a re intact. CONCLUSION: No acute findings. Electronically signed by: Robin Landeors MD 10/06/2018 11:16 PM EST
[2018-10-06 23:34] LABS: Chloride 106 meq/L (98-107); Potassium 3.7 meq/L (3.5-5.1); Sodium 136 meq/L (136-145)
[2018-10-06 23:36] LABS: Calcium 8.3 mg/dL (8.5-10.1)
[2018-10-06 23:37] LABS: Anion Gap 10 meq/L (5-15); Blood Urea Nitrogen 13 mg/dL (7-18); Carbon Dioxide 20.5 meq/L (21.0-32.0); Glucose,Random 95 mg/dL (74-106)
[2018-10-06 23:39] LABS: Activated Partial Thrombo Time 24.2 sec (23.4-31.7); INR 1.1 Ratio
[2018-10-06 23:40] LABS: Glomerular Filtration Rate Greater Than 89 mL/min (>89)
[2018-10-07 00:06] LABS: Hematocrit 22.6 % (35.0-46.0); Mean Corpuscular Hemoglobin 15.6 pg (27.0-34.0); Mean Corpuscular Volume 55.4 fL (80.0-100.0); Platelet Count 336 th/mm3 (150-450); Red Blood Count 4.07 mil/mm3 (4.00-5.30); Red Cell Distribution Width 20.3 % (11.6-17.2); White Blood Count 8.7 th/mm3 (4.0-11.0)
[2018-10-07 00:08] LABS: Mean Corpuscular HGB Conc 28.1 % (32.0-36.0)
[2018-10-07 00:10] LABS: Hemoglobin 6.3 gm/dL (11.6-15.3)
[2018-10-07 00:33] LABS: Bilirubin,Urine Negative (Negative); Clarity,Urine Clear (Clear); Color,Urine Yellow (Yellw/Straw); Glucose,Urine (UA) Negative (Negative); Leukocyte Esterase,Urine Negative (Negative); Nitrite,Urine Negative (Negative); Specific Gravity,Urine 1.025 (1.002-1.035); Urobilinogen,Urine 0.2 mg/dL (Less than 2)
[2018-10-07] MEDS ORDERED: Ketorolac Inj 30 MG/ML (IVP) Vial IV.PUSH ONE (00:42)
[2018-10-07 00:43] LABS: Bacteria,Urine Occasional /hpf; Squamous Epithelial Cell,Urine 0-5 /hpf (0-5); WBC,Urine 0-5 /hpf (0-5)
[2018-10-07 00:44] LABS: Mucus,Urine Moderate /lpf (Occasional)
[2018-10-07] MEDS ORDERED: Morphine Sulfate Inj 2 MG/ML Vial IV.PUSH ONE (00:55)
[2018-10-07 01:01] LABS: Lymphocytes 6 % (9-44); Monocytes 3 % (0-8)
[2018-10-07 01:02] LABS: Dimorphic RBC Present; Ovalocytes 1+
[2018-10-07 01:03] LABS: Platelet Estimate Normal (Normal); Platelet Morphology Normal (Normal); Target Cells 1+
[2018-10-07 01:04] LABS: Tear Drop Cells 1+
[2018-10-07] MEDS ORDERED: Acetaminophen 325 MG Tablet PO PRN (01:21)
[2018-10-07] MEDS ORDERED: Temazepam 15 MG Capsule PO PRN (01:21)
[2018-10-07] MEDS ORDERED: Sod Chloride 0.9% Inj 1,000 ML IV.CONT SCH (01:30)
[2018-10-07 12:02] LABS: Baso % (Auto) 0.1 % (0.0-2.0); Eos % (Auto) 0.3 % (0.0-4.0); Hematocrit 27.6 % (35.0-46.0); Hemoglobin 8.1 gm/dL (11.6-15.3); Lymph # (Auto) 0.8 th/mm3 (1.0-4.8); Lymph % (Auto) 15.4 % (9.0-44.0); Mean Corpuscular Hemoglobin 18.3 pg (27.0-34.0); Mean Corpuscular Volume 62.3 fL (80.0-100.0); Mean Platelet Volume 7.8 fL (7.0-11.0); Mono # (Auto) 0.5 th/mm3 (0.0-0.9); Mono % (Auto) 9.8 % (0.0-8.0); Neut # (Auto) 4.2 th/mm3 (1.8-7.7); Neut % (Auto) 74.4 % (16.0-70.0); Platelet Count 308 th/mm3 (150-450); Red Blood Count 4.43 mil/mm3 (4.00-5.30); Red Cell Distribution Width 30.9 % (11.6-17.2); White Blood Count 5.5 th/mm3 (4.0-11.0)
[2018-10-07 12:12] LABS: Mean Corpuscular HGB Conc 29.4 % (32.0-36.0)
[2018-10-07 12:44] LABS: Acanthocytes 1+; Ovalocytes 1+; Target Cells 2+; Tear Drop Cells 1+
--- NOTE | 2018-10-07 12:53 | P.HP ---
History of Present Illness Service: medicine Primary Care Physician: No Primary Care Physician History of Present Illness: 28 y/o female presents to the emergency room with generalized weakness and malaise. She states she normally is very active, working , raising 3 children and going to school. Recently she has been under more stress and getting migraine headaches for which she was taking excedrin. She eventually dropped one of her classes. Her small children developed a stomach virus last weekend and thoug they improved she developed nausea and diarrhea on tuesday.She states she was having several bouts of diarrhea a day along with some nausea. Marcia spent thanksgiving with her family and went to work yesterday. She states she was able to leave work early yesterday and went home. She states she felt incredibly weak, was lightheaded with palpitations.She barely was able to get dressed to come in to the ER. She has had some cramping abdominal pain during this time. Which is still present this morning though she is now feeling constipated and has had no further diarrhea since last night. She does have a hx of heavy menstrual bleeding with admission for symptomatic anemia. She has received blood and iron transfusions. She has seen gynecologists intermittently for this problem due to insurance issues. She states one education department chair attempted the use of OCP's that actually worsened her menses and she did not return. Another told her she was not a candidate for endometial ablation due to her C- Sections. This am she feels stronger after her tansfusions, able to walk to the bathroom without being lightheaded, she states she still feels hot and cold and some generalized body ache but not as bad as last night when she received morphine in the ER. She does state her menses start between the th and of the month. She uses ibuprofen 800 mg once a day on her menses and sometimes and extra 400 mg. - Diagnosis (1) Symptomatic anemia (2) Weakness (3) Diarrhea Review of Systems Constitutional: Reports body ache(s), Reports headache(s), Reports weakness Comments: suffers from migraines Ears, Nose, Mouth, and Throat: Reports sore throat Cardiovascular: Reports fast heart rate Gastrointestinal: Reports constipation, Reports cramping, Reports loose stools, Reports nausea Genitourinary: Reports abnormal periods Musculoskeletal: Reports body aches Neurologic: Reports headache(s) Comments: migraines PMF - History History Provided By: Patient, Medical Record - Medical History Medical History: Medical History (Last Updated 10/07/18 @ 12:01 by Dilia López MD) Anemia Heavy menstrual bleeding Kidney stones - Surgical History Surgical History: Surgical History (Last Reviewed 10/07/18 @ 11:59 by Dilia López MD) H/O tubal ligation Previous section - Social History I have reviewed the patient's Social History: Yes - Tobacco History Second Hand Smoke Exposure: No Smoking Status: Never smoker - Alcohol History How Often Do You Have a Drink Containing Alcohol: Never - Substance Use History Substance History: No History of Abuse - Immunization History Tetanus Immunization: Unable to Assess Hx Influenza Vaccine This Season: Yes Medications and Allergies Active Medications: Active Medications Acetaminophen (Tylenol) 650 mg PO Q4H PRN PRN Reason: TEMP>100.4F,PAIN1-10,IRRITABLE Last Admin: 10/07/18 09:20 Dose: 650 mg Ondansetron HCl (Zofran Inj) 4 mg IV.PUSH Q6H PRN PRN Reason: NAUSEA OR VOMITING Last Admin: 10/07/18 09:14 Dose: 4 mg Pantoprazole Sodium (Protonix) 40 mg PO DAILY BRENDA Temazepam (Restoril) 15 mg PO HS PRN PRN Reason: INSOMNIA Allergies Allergy/AdvReac Type Severity Reaction Status Date / Time atropine Allergy Severe HIVES Verified 10/07/18 00:26 diphenoxylate Allergy Severe HIVES Verified 10/07/18 00:26 Home Medications Medication Instructions Recorded Confirmed Type ferrous sulfate [iron] 325 mg PO BID 10/07/18 10/07/18 History Exam Vital signs: Vital Signs 10/06/18 22:34 10/07/18 00:25 10/07/18 02:03 Temperature 99.4 F Pulse Rate 124 H 105 H 180 H Respiratory Rate 18 18 18 Blood Pressure 132/78 138/66 105/69 Pulse Oximetry 100 100 99 10/07/18 02:20 10/07/18 03:16 10/07/18 03:33 Temperature 99.6 F 98.6 F Pulse Rate 94 H 103 H Respiratory Rate 20 18 20 Blood Pressure 101/49 L Pulse Oximetry 100 10/07/18 06:37 10/07/18 06:40 11/24/18 07:07 Temperature 99.7 F H 99.7 F H 100.2 F H Pulse Rate 89 89 94 H Respiratory Rate 20 20 18 Blood Pressure 102/60 102/60 109/79 Pulse Oximetry 97 97 10/07/18 08:00 10/07/18 09:26 Temperature 100.4 F H 99.7 F H Pulse Rate 95 H Respiratory Rate 18 Blood Pressure 125/60 Pulse Oximetry 98 Intake & Output 10/06/18 10/07/18 10/07/18 18:59 06:59 18:59 Intake Total 2520 / 2520 400 / 400 Balance 2520 / 2520 400 / 400 Weight 114.8 kg Intake: IV 1000 / 1000 NS Inj 1,000 ML @ 1000 mls/hr 1000 / 1000 IV.SIG BOLUS BRENDA Rx#:[id number] Oral 720 / 720 Other 400 / 400 Rbc As-3 Leukoreduced Unit 400 / 400 [id number] Intake (Blood Product) Amt 0 / 0 400 / 400 Rbc As-3 Leukoreduced Unit 0 / 0 [id number] Rbc As-3 Leukoreduced Unit 0 / 0 400 / 400 [id number] Mass Transfusion Protocol 400 / 400 Other: # Voids 2 Date of Last Bowel Movement 10/06/18 10/06/18 Weight On Admission 114 kg - Constitutional no acute distress, obese - Routine HEENT Exam Head: Present: normocephalic Eye: Present: EOMI ENT: Present: mucous membranes moist Comments: conjunctiva pale - Routine Neck Exam Present: supple - Routine Respiratory Exam Present: CTA bilaterally - Routine Cardiovascular Exam Present: RRR - Routine Abdominal Exam Present: soft, normoactive bowel sounds, tenderness Comments: midabdominal diffuse tenderness no rebound or guarding - Routine Extremities Exam Present: full ROM - Routine Skin Exam Present: intact - Routine Neurological Exam Present: alert, oriented X3 Results - Labs CBC & Chem 7: 10/06/18 23:45 10/06/18 22:55 Labs: Laboratory Results - last 24 hr 10/06/18 10/06/18 10/06/18 00:12 22:55 22:55 CBC w Diff WBC RBC Hgb Hct MCV MCH MCHC RDW Plt Count MPV WBC Differential Seg Neuts % (Manual) Lymphocytes % (Manual) Monocytes % (Manual) Abs Neuts (Manual) Differential Comment Platelet Estimate Platelet Morphology Dimorphic RBCs Target Cells Tear Drop Cells Ovalocytes PT 11.0 INR 1.1 APTT 24.2 Sodium 136 Potassium 3.7 Chloride 106 Carbon Dioxide 20.5 L Anion Gap 10 BUN 13 Creatinine 0.67 Estimated GFR Greater than 89 Random Glucose 95 Lactic Acid Calcium 8.3 L Troponin I Less than 0.02 L Urine Color Urine Clarity Urine pH Ur Specific Draper Urine Protein Urine Glucose (UA) Urine Ketones Urine Occult Blood Urine Nitrate Urine Bilirubin Urine Urobilinogen Ur Leukocyte Esterase Urine WBC Ur Squamous Epith Cells Urine Bacteria Urine Mucus Micro UA Comment Ur Microscopic Review Urine Culture Comments Blood Type A Positive Antibody Screen Negative MTS Gel Crossmatch See Detail 10/06/18 10/06/18 10/06/18 23:05 23:45 23:59 CBC w Diff Slide review pending WBC 8.7 RBC 4.07 Hgb 6.3 L* Hct 22.6 L MCV 55.4 L MCH 15.6 L MCHC 28.1 L RDW 20.3 H Plt Count 336 MPV 8.0 WBC Differential Manual diff final Seg Neuts % (Manual) 91 H Lymphocytes % (Manual) 6 L Monocytes % (Manual) 3 Abs Neuts (Manual) 7.9 H Differential Comment . Platelet Estimate Normal Platelet Morphology Normal Dimorphic RBCs Present H Target Cells 1+ H Tear Drop Cells 1+ H Ovalocytes 1+ H PT INR APTT Sodium Potassium Chloride Carbon Dioxide Anion Gap BUN Creatinine Estimated GFR Random Glucose Lactic Acid 1.1 Calcium Troponin I Urine Color Yellow Urine Clarity Clear Urine pH 6.0 Ur Specific [place] 1.025 Urine Protein Negative Urine Glucose (UA) Negative Urine Ketones Trace H Urine Occult Blood Negative Urine Nitrate Negative Urine Bilirubin Negative Urine Urobilinogen 0.2 Ur Leukocyte Esterase Negative Urine WBC 0-5 Ur Squamous Epith Cells 0-5 Urine Bacteria Occasional H Urine Mucus Moderate H Micro UA Comment Culture not ind Ur Microscopic Review Microscopic reviewed Urine Culture Comments Culture not ind Blood Type Antibody Screen MTS Gel Crossmatch - Imaging Impressions Chest X-Ray 10/06/18 22:48 CONCLUSION: No acute findings. Caprini VTE Risk Assessment Caprini VTE Risk Assessment: No/Low Risk (score <= 1) Caprini Risk Assessment Model: Point Value = 1 Point Value = 2 Point Value = 3 Point Value = 5 Age 41-60 Minor surgery BMI > 25 kg/m2 Swollen legs Varicose veins or History of unexplained or recurrent spontaneous Oral contraceptives or hormone replacement Sepsis (< 1 month) Serious lung disease, including pneumonia (< 1 month) Abnormal pulmonary function Acute myocardial infarction Congestive heart failure (< 1 month) History of inflammatory bowel disease Medical patient at bed rest Age 61-74 Arthroscopic surgery Major open surgery (> 45 min) Laparoscopic surgery (> 45 min) Malignancy Confined to bed (> 72 hours) Immobilizing plaster cast Central venous access Age >= 75 History of VTE Family history of VTE Factor V Leiden Prothrombin [id number] Lupus anticoagulant Anticardiolipin antibodies Elevated serum homocysteine Heparin-induced thrombocytopenia Other congenital or acquired thrombophilia Stroke (< 1 month) Elective arthroplasty Hip, pelvis, or leg fracture Acute spinal cord injury (< 1 month) Prophylaxis Regimen: Total Risk Factor Score Risk Level Prophylaxis Regimen 0-1 Low Early ambulation 2 Moderate Order ONE of the following: *Sequential Compression Device (SCD) *Heparin 5000 units SQ BID 3-4 Higher Order ONE of the following medications: *Heparin 5000 units SQ TID *Enoxaparin/Lovenox 40 mg SQ daily (WT < 150 kg, CrCl > 30 mL/min) *Enoxaparin/Lovenox 30 mg SQ daily (WT < 150 kg, CrCl > 10-29 mL/min) *Enoxaparin/Lovenox 30 mg SQ BID (WT < 150 kg, CrCl > 30 mL/min) AND/OR *Sequential Compression Device (SCD) 5 or more Highest Order ONE of the following medications: *Heparin 5000 units SQ TID (Preferred with Epidurals) *Enoxaparin/Lovenox 40 mg SQ daily (WT < 150 kg, CrCl > 30 mL/min) *Enoxaparin/Lovenox 30 mg SQ daily (WT < 150 kg, CrCl > 10-29 mL/min) *Enoxaparin/Lovenox 30 mg SQ BID (WT < 150 kg, CrCl > 30 mL/min) AND *Sequential Compression Device (SCD) Assessment and Plan - Assessment (1) Symptomatic anemia Code(s): D64.9 - Anemia, unspecified Status: Acute Plan: she has been transfused 2 units of blood and will check her iron levels. She has had iron infusion in the past with improvement in her symptoms. She states she cannot tolerate ferrous sulfate due to nausea and emesis.Given use of nsaids will check hemmocults and place on ppi (2) Weakness Code(s): R53.1 - Weakness Status: Acute Plan: She states she feels a little stronger this am after her transfusion, will have her ambulate and see how she does (3) Diarrhea Code(s): R19.7 - Diarrhea, unspecified Status: Acute Plan: she had last bout last night , will order stool studies should they recur (3) Diarrhea Qualifiers: Diarrhea type: unspecified type Qualified Code(s): R19.7 - Diarrhea, unspecified
[2018-10-07 12:59] LABS: % Iron Saturation 3.6 % (20-50)
--- NOTE | 2018-10-07 13:51 | ECG ---
Date Performed: 10/06/2018 Time Performed: 22:45:04 PTAGE: 28 years EKG: SINUS TACHYCARDIA NONSPECIFIC T-WAVE ABNORMALITY ABNORMAL RHYTHM ECG Since PREVIOUS TRACING , no significant change noted PREVIOUS TRACIN11/14/2017 07.10 DOCTOR: Nilson Tavares Interpretating Date/Time 10/07/2018 13:50:31
[2018-10-07] MEDS ORDERED: Iron Sucrose Inj 200 MG in Sodium Chlor 0.9% Inj 100 ML IV.SIG ONE (15:00)
[2018-10-07] MEDS ORDERED: Diatrizoate Meglum/Diatrizoate Sod Liq 9 ML UDC PO ONE (19:15)
--- NOTE | 2018-10-07 21:43 | CT ---
EXAM DATE: 10/07/2018 9:34 PM EST AGE/SEX: 28 years / Female INDICATIONS: Middle abdominal pain, constipation. CLINICAL DATA: This is the patient's initial encounter. Patient reports that signs and symptoms have been present for 2 days and indicates a pain score of 6/10. MEDICAL/SURGICAL HISTORY: Anemia. Renal calculi. Tubal ligation. section. RADIATION DOSE: 24.91 CTDI (mGy) COMPARISON: [facility], CT ABDOMEN & PELVIS W/O CONTRAST, 06/07/2017. . TECHNIQUE: Multiple contiguous axial images were obtained through the abdomen. Images were obtained using multiple row detector helical technique. Using automated exposure control and adjustment of the mA and/or kV according to patient size, radiation dose was kept as low as reasonably achievable to o btain optimal diagnostic quality images. DICOM format image data is available electronically for rev iew and comparison. FINDINGS: The noncontrast appearance of the liver, spleen, pancreas and adrenal glands is normal. No acute abno rmality seen of either kidney. Tiny nonobstructing stones are seen of the right mid zone and lower po le. No ureteral calculus or hydronephrosis/hydroureter on either side. Moderate stool in the right side of the colon. No abrupt caliber changes are demonstrated. No percept ible inflammatory changes. The appendix is well-visualized, normal. Small umbilical hernia containing fat only is unchanged. No free fluid or free air. No lymphadenopathy. CT appearance of the reproduct sagar organs within normal limits. Visualized lung bases are clear. No acute bony abnormalities are demonstrated. CONCLUSION: 1. Nonobstructive bowel gas pattern. No perceptible acute inflammatory changes. Moderate stool in th e right side of the colon. 2. Tiny nonobstructing stones of the right kidney. 3. Small fat-containing umbilical hernia is unchanged. Electronically signed by: Niels Stern MD 10/07/2018 9:42 PM EST
[2018-10-08 07:00] LABS: Baso % (Auto) 0.4 % (0.0-2.0); Eos # (Auto) 0.1 th/mm3 (0.0-0.4); Eos % (Auto) 2.2 % (0.0-4.0); Hematocrit 27.8 % (35.0-46.0); Lymph # (Auto) 1.4 th/mm3 (1.0-4.8); Lymph % (Auto) 23.7 % (9.0-44.0); Mean Corpuscular Hemoglobin 18.1 pg (27.0-34.0); Mean Corpuscular Volume 62.6 fL (80.0-100.0); Mean Platelet Volume 8.6 fL (7.0-11.0); Mono # (Auto) 0.8 th/mm3 (0.0-0.9); Mono % (Auto) 13.4 % (0.0-8.0); Neut # (Auto) 3.5 th/mm3 (1.8-7.7); Neut % (Auto) 60.3 % (16.0-70.0); Platelet Count 308 th/mm3 (150-450); Red Blood Count 4.44 mil/mm3 (4.00-5.30); Red Cell Distribution Width 29.3 % (11.6-17.2); White Blood Count 5.8 th/mm3 (4.0-11.0)
[2018-10-08 07:01] LABS: Mean Corpuscular HGB Conc 28.9 % (32.0-36.0)
[2018-10-08 07:11] LABS: Chloride 109 meq/L (98-107); Potassium 3.1 meq/L (3.5-5.1); Sodium 142 meq/L (136-145)
[2018-10-08 07:14] LABS: Calcium 7.9 mg/dL (8.5-10.1)
[2018-10-08 07:15] LABS: Albumin 2.8 g/dL (3.4-5.0); Anion Gap 10 meq/L (5-15); Blood Urea Nitrogen 9 mg/dL (7-18); Carbon Dioxide 23.5 meq/L (21.0-32.0); Glucose,Random 89 mg/dL (74-106)
[2018-10-08 07:18] LABS: Alanine Aminotransferase 16 U/L (10-53); Aspartate Aminotransferase 16 U/L (15-37); Glomerular Filtration Rate Greater Than 89 mL/min (>89)
[2018-10-08 07:19] LABS: Total Protein 6.2 g/dL (6.4-8.2)
[2018-10-08 07:21] LABS: Alkaline Phosphatase 42 U/L (45-117)
[2018-10-08 08:15] LABS: Target Cells 1+
[2018-10-08 08:16] LABS: Ovalocytes 1+; Tear Drop Cells 1+
[2018-10-08] MEDS ORDERED: Polysaccharide Iron Complex 150 MG Capsule PO ONE (11:00)
--- NOTE | 2018-10-08 12:34 | P.PN ---
Subjective Interval history: transfused 2 units of blood and received Venofer infusion, feeling better, not lightheaded, walking to bathroom, abdomen feels better, tolerating food, no bm. Physical Exam Vital signs: Vital Signs 10/07/18 16:00 10/07/18 20:00 10/08/18 00:00 Temperature 99.3 F 98.2 F 98.2 F Pulse Rate 79 79 80 Respiratory Rate 18 20 20 Blood Pressure 119/65 136/85 122/70 Pulse Oximetry 98 100 98 10/08/18 08:00 10/08/18 11:57 Temperature 97.3 F L Pulse Rate 76 Respiratory Rate 23 16 Blood Pressure 111/57 L Pulse Oximetry 99 Intake & Output 10/07/18 10/08/18 10/08/18 18:59 06:59 18:59 Intake Total 1210 / 1210 480 / 480 240 / 240 Output Total 200 / 200 Balance 1210 / 1210 480 / 480 40 / 40 Weight 114.8 kg Intake: IV 810 / 810 NS Inj 1,000 ML @ 75 mls/hr IV. 700 / 700 CONT .[id number] BRENDA Rx#: [id number] Venofer Inj 200 MG In NS Inj 110 / 110 100 ML @ 110 mls/hr IV.SIG ONCE ONE Rx#:[id number] Oral 480 / 480 240 / 240 Intake (Blood Product) Amt 400 / 400 Rbc As-3 Leukoreduced Unit 400 / 400 [id number] Output: Urine 200 / 200 Other: # Voids 5 3 Date of Last Bowel Movement 10/06/18 10/06/18 - Constitutional no acute distress, obese - Routine HEENT Exam Head: Present: normocephalic - Routine Neck Exam Present: supple - Routine Respiratory Exam Present: CTA bilaterally - Routine Cardiovascular Exam Present: RRR - Routine Abdominal Exam Present: soft, normoactive bowel sounds - Routine Skin Exam Present: intact, warm - Routine Neurological Exam Present: alert, oriented X3 - Routine Psychiatric Exam Present: normal affect, normal thought process Results - Labs CBC & Chem 7: 10/08/18 05:55 10/08/18 05:55 Laboratory Results - last 24 hr 10/06/18 10/07/18 10/08/18 22:55 11:50 05:55 CBC w Diff Slide review pending WBC 5.8 RBC 4.44 Hgb 8.0 L Hct 27.8 L MCV 62.6 L MCH 18.1 L MCHC 28.9 L RDW 29.3 H Plt Count 308 MPV 8.6 Neut % (Auto) 60.3 Lymph % (Auto) 23.7 [place] % (Auto) 13.4 H Eos % (Auto) 2.2 Baso % (Auto) 0.4 Neut # (Auto) 3.5 Lymph # (Auto) 1.4 [place] # (Auto) 0.8 Eos # (Auto) 0.1 Baso # (Auto) 0.0 WBC Differential . . Diff Scan Auto diff confirmed Auto diff confirmed Differential Comment . Target Cells 2+ H 1+ H Tear Drop Cells 1+ H 1+ H Ovalocytes 1+ H 1+ H Acanthocytes (Spur) 1+ H Sodium Potassium Chloride Carbon Dioxide Anion Gap BUN Creatinine Estimated GFR Random Glucose Calcium Iron 19 L TIBC 528 H % Saturation 3.6 L Total Bilirubin AST ALT Alkaline Phosphatase Total Protein Albumin 10/08/18 05:55 CBC w Diff WBC RBC Hgb Hct MCV MCH MCHC RDW Plt Count MPV Neut % (Auto) Lymph % (Auto) [place] % (Auto) Eos % (Auto) Baso % (Auto) Neut # (Auto) Lymph # (Auto) [place] # (Auto) Eos # (Auto) Baso # (Auto) WBC Differential Diff Scan Differential Comment Target Cells Tear Drop Cells Ovalocytes Acanthocytes (Spur) Sodium 142 Potassium 3.1 L Chloride 109 H Carbon Dioxide 23.5 Anion Gap 10 BUN 9 Creatinine 0.62 Estimated GFR Greater than 89 Random Glucose 89 Calcium 7.9 L Iron TIBC % Saturation Total Bilirubin 0.4 AST 16 ALT 16 Alkaline Phosphatase 42 L Total Protein 6.2 L Albumin 2.8 L Microbiology 10/06/18 23:05 Blood - Peripheral Aerobic Blood Culture - Preliminary No growth in 2 days 10/06/18 23:05 Blood - Peripheral Anaerobic Blood Culture - Preliminary No growth in 2 days 10/06/18 23:05 Blood - Peripheral Aerobic Blood Culture - Preliminary No growth in 2 days 10/06/18 23:05 Blood - Peripheral Anaerobic Blood Culture - Preliminary No growth in 2 days 10/06/18 23:35 Throat Group A Streptococcus Screen/Cult - Preliminary No Beta Streptococci isolated at 24 hours - Imaging Impressions Abdomen/Pelvis CT 10/07/18 00:00 CONCLUSION: 1. Nonobstructive bowel gas pattern. No perceptible acute inflammatory changes. Moderate stool in the right side of the colon. 2. Tiny nonobstructing stones of the right kidney. 3. Small fat-containing umbilical hernia is unchanged. Assessment and Plan - Assessment (1) Symptomatic anemia Code(s): D64.9 - Anemia, unspecified Status: Chronic Plan: feeling better after blood and iron infusions, tolerated low dose iron without nausea, hgb/hct at 8/27.8, she should continue to recover on her own as she has historically in the past, she has the underlying heavy menstrual bleeding that has been the source of her anemia. Encouraged to follow with her new pcp to follow up on cbc and to help her with referral and follow up with [facility]. she has seen [facility] in the past and has been unable to follow up due to insurance issues. She last saw Dr Cheung and he has her on tranexamic acid to control her bleeding. She states she has been on this off and on over the years. Discussed having her use this now as her menses will be starting , thus control her bleeding till seen by [facility]. (2) Weakness Code(s): R53.1 - Weakness Status: Resolved Plan: feels much stonger ,ambulating well, likely the effects of the gastroenteritis on top of her anemia (3) Diarrhea Code(s): R19.7 - Diarrhea, unspecified Status: Resolved Plan: she has had no further diarrhea since admission. lasted from tue to tuesday. Discussed with her was probably a gastroenteritis similar to her childrens' that hit her harder with her underlying anemia, started eating more today ct scan was unremarkable and her abdominal pain is better. She takes a lot of ibuprofen with her menses and migraine. Will discharge on protonix and encouraged to try to decrease the use of ibuprofen if possible. - Plan discharge home today with follow up with pcp this week and [facility] Discussed Condition With: patient (3) Diarrhea Qualifiers: Diarrhea type: unspecified type Qualified Code(s): R19.7 - Diarrhea, unspecified
[2018-10-08 12:54] VITALS: BP 117/73; PULSE 73; RESP 19; TEMP 98.2; O2SAT 96
== END 2018-10-08 13:39 | disposition home or self-care (01) ==
LOC: PHEDA 22:31 → PHED 22:31 → PH3 10-07 02:11
PROVIDERS: ADMIT Legal Medicine; ATTEND Legal Medicine